=== PATIENT | male | born 1935 | race Caucasian/White ===

== ENCOUNTER 2019-01-14 23:31 | Emergency (ER) | payer MEDICARE, BC ==
[2019-01-14 23:47] LABS: BASO % 0.4 % (0.0-2.0); EOS % 0.1 % (0-4.0); GRAN # 8.1 (1.4-6.5); GRAN % 87.9 % (42.2-75.2); HEMATOCRIT 42.6 % (42.0-52.0); HEMOGLOBIN 14.9 g/dl (13.5-18.0); LYMPH # 0.7 (1.2-3.4); LYMPH % 7.4 % (20.0-51.0); MEAN CELL VOLUME 93 fl (80.0-100.0); MEAN CORPUSCULAR HEMOGLOBIN 33 pg (27.0-31.0); MEAN CORPUSCULAR HGB CONC 35 g/dl (33.0-37.0); MEAN PLATELET VOLUME 9.1 fl (7.4-10.4); MONO # 0.3 (0.1-0.6); MONO % 3.5 % (1.7-9.3); PLATELET COUNT 184 K/mm3 (130-400); RED BLOOD COUNT 4.59 M/mm3 (4.20-5.60); REDCELL DISTRIBUTION WIDTH-CV 12.2 % (11.5-14.5)
[2019-01-14 23:49] LABS: INR 1.1 (0.8-3.0); PROTHROMBIN TIME 12.4 SECONDS (9.7-12.8)
[2019-01-14 23:52] LABS: PARTIAL THROMBOPLASTIN TIME 25.1 SECONDS (26.0-37.0)
[2019-01-15 00:20] LABS: ARTERIAL BLD GAS O2 SATURATION 97.1 % (92-100); ARTERIAL BLOOD GAS HCO3 20.1 meq/L (22-26); ARTERIAL BLOOD GAS PCO2 30.5 mmHg (35-45); ARTERIAL BLOOD GAS PO2 102.8 mmHg (80-100); ARTERIAL BLOOD GAS pH 7.44 (7.35-7.45)
[2019-01-15 00:40] VITALS: TEMP 101
[2019-01-15 00:45] LABS: AMORPHOUS CRYSTAL Present /uL; MUCOUS Present /lpf; PH 5 (5-8); SQUAMOUS EPITHELIAL None Seen /hpf; URINE APPEARANCE Cloudy; URINE BACTERIA Moderate /hpf; URINE BILIRUBIN Negative (NEGATIVE); URINE BLOOD 3+ (NEGATIVE); URINE COLOR Amber; URINE GLUCOSE Negative (NEGATIVE); URINE KETONE Negative (NEGATIVE); URINE LEUKOCYTE ESTERASE 3+ (NEGATIVE); URINE NITRATE Negative (NEGATIVE); URINE PROTEIN(semi-quant) 2+ (NEGATIVE); URINE RBC >50 /hpf; URINE UROBILINOGEN Negative (NEGATIVE)
[2019-01-15 00:47] LABS: ALBUMIN 4.1 gm/dL (3.5-5.0); BILIRUBIN,TOTAL 0.7 mg/dL (0.0-1.0); CALCIUM 9.5 mg/dL (8.4-10.2); CREATININE, serum 1.42 (0.66-1.25); MAGNESIUM 1.1 mg/dL (1.6-2.3); PHOSPHOROUS 2.6 mg/dL (2.5-4.5); TOTAL PROTEIN 7.3 gm/dL (6.4-8.2)
[2019-01-15 00:49] LABS: COLLECTION METHOD CATHETER
[2019-01-15] MEDS ORDERED: ZYLOPRIM 100MG100 MG PO (00:50)
[2019-01-15] MEDS ORDERED: TENORMIN 2525 MG/TAB PO (00:50)
[2019-01-15] MEDS ORDERED: ASPI325T6 PO (00:50)
[2019-01-15] MEDS ORDERED: HYGROTON 2525 MG/TAB (00:51)
[2019-01-15] MEDS ORDERED: COZAAR 50MG50 MG/TAB PO (00:51)
[2019-01-15] MEDS ORDERED: LIPITOR20 MG PO (00:51)
[2019-01-15] MEDS ORDERED: SEROQUEL XR300 MG PO (00:53)
[2019-01-15] MEDS ORDERED: QUESTRAN4 GM/9 GM PO (00:54)
[2019-01-15] MEDS ORDERED: LAMICTAL200 MG PO (00:54)
[2019-01-15] MEDS ORDERED: NEXIUM 40MG40 MG PO (00:54)
[2019-01-15 01:02] LABS: PROLACTIN 14.9 ng/mL (3.7-17.9)
[2019-01-15 01:08] LABS: TROPONIN-I 0.057 ng/mL (0.000-0.035)
[2019-01-15] MEDS ORDERED: NORCO 325 MG-51 TAB PO (01:25)
[2019-01-15] MEDS ORDERED: BACTRIM DS 8001 TAB PO (01:27)
[2019-01-15 02:29] VITALS: BP 107/59; PULSE 101
== END 2019-01-15 02:29 | disposition short-term general hospital (02) ==
LOC: COL.ER 23:31 → EDBD 23:32 → COL.ER 23:32
PROVIDERS: Emergency Medicine
DX: A41.9 Sepsis, unspecified organism (principal); N39.0 Urinary tract infection, site not specified; R65.20 Severe sepsis without septic shock; R79.89 Other specified abnormal findings of blood chemistry; I25.10 Atherosclerotic heart disease of native coronary artery without angina pectoris; Z95.0 Presence of cardiac pacemaker; Z90.49 Acquired absence of other specified parts of digestive tract; Z85.46 Personal history of malignant neoplasm of prostate; Z79.82 Long term (current) use of aspirin
CPT/HCPCS: J0696; J2405; J3475; J3480; J7030; Q9967

== ENCOUNTER 2019-02-27 12:20 | Observation (INO) | payer MEDICARE, BC ==
[2019-02-27] VITALS (11 sets, daily range): BP systolic 150–184; BP diastolic 67–83; PULSE 68–95; TEMP 98–98.2
[~2019-02-27] VITALS: Ht 177.8 cm; Wt 72.5 kg
[~2019-02-27 12:20] MED LIST: ANTIVERT 25MG25 MG PO; ASPI325T6 PO; ASPIRIN 32325 MG/TAB PO; ATORVASTATIN PO; ATOXIMETIN-B1 CAP PO; BACTRIM DS 8001 TAB PO; CARDI-OMEGA1000 MG PO; CIPRO 500MG TA500 MG PO; CLONIDINE0.1 MG PO; CLOPIDOGREL PO; COZAAR 25MG25 MG/TAB PO; COZAAR 50MG50 MG/TAB PO; DESYREL 50MG50 MG PO; DIOVAN80 MG PO; FLAGYL500 MG PO; FLOMAX 0.40.4 MG/CAP PO; FLOMAX0.4 MG PO; HYGROTON 2525 MG/TAB; HYGROTON 2525 MG/TAB PO; IMDUR60 MG PO; LAMICTAL 100MG100 MG PO; LAMICTAL XR200 MG PO; LAMICTAL200 MG PO; LEVAQUIN 750MG750 M1 PO; LIPITOR20 MG PO; MOBIC 7.5MG7.5 MG PO; MOBIC7.5 M1 PO; MULTI VITAMINS1 TAB PO; NATURE'S BLEND400 IU PO; NEXIUM 40MG40 MG PO; NEXIUM40 MG PO; NORCO 325 MG-51 TAB PO; PAXIL30 MG PO; PROVIGIL200 MG PO; QUESTRAN4 GM/9 GM PO; SENOKOT S 50 MG1 TAB PO; SEROQUEL 200MG200 MG PO; SEROQUEL XR300 MG PO; TENORMIN 2525 MG/TAB PO; TENORMIN 5050 MG/TAB PO; TOPROL XL 50MG50 MG PO; ULTRAM 50MG TAB50 MG; VITAMIN E1000 U/CAP PO; ZETIA 10MG TAB10 MG PO; ZOFRAN ODT4 MG PO; ZYLOPRIM 100MG100 MG PO
[2019-02-27] MEDS ORDERED: ASPIRIN 81M81 MG/TA2 PO (12:52)
[2019-02-27] MEDS ORDERED: OMNICEF 300MG300 MG PO (12:58)
[2019-02-27] MEDS ORDERED: PROVIGIL200 MG PO (12:58)
[2019-02-27] MEDS ORDERED: CALCIUM 600MG+D1 TAB PO (12:58)
--- NOTE | 2019-02-27 14:00 | NUR ---
Patient resting comfortably in room. Denies any needs at this time.
--- NOTE | 2019-02-27 14:40 | NUR ---
Patient to the OR at this time. 1 bag of personal belongings labeled with a patient sticker taken to the PACU and left with ANATOLIY Pollock.
--- NOTE | 2019-02-27 17:05 | NUR ---
PT TO ROOM 343 WITH REPORT FROM HELENA @ 7076. PT IS A/O X3, CBI RUNNING WITH PINK LIQUID IN FOLELY BAG. IV TO LFA. LUNGS CLEAR, BOWEL SOUNDS ACTIVE. SCDS PLACED BILATERALLY.
--- NOTE | 2019-02-27 19:15 | NUR ---
report to Deisy COPE.
--- NOTE | 2019-02-28 00:13 | NUR ---
Dr. López updated on hypertension and fever of 100.4. Orders as follows: Hydralazine 10mg IV every 8 hours PRN for systolic BP over 160, Discontinue Ancef and start IV Levaquin 500mg every 24 hours with the first dose now. TORB.
[2019-02-28 04:13] VITALS: BP 110/53; PULSE 85; TEMP 99.6
[2019-02-28 07:40] VITALS: BP 129/61; PULSE 88; TEMP 99
--- NOTE | 2019-02-28 11:02 | NUR ---
SW met with the patient to discuss discharge plan. The patient lives in [place] with his , Marcie. He reports independence with ADLs and has a cane. The patient's PCP is Dr. Makayla Bradshaw and he receives his medications at the [facility]. He reports no difficulties obtaining his meds. The patient does not have advanced directives in EMR, but he states that he does have them completed and at home. He states his is his DPOA-HC. The patient plans to return home with his upon discharge. No additional needs at this time.
--- NOTE | 2019-02-28 11:10 | NUR ---
Initial visit; Patient thanked Fretted String Instrument Repairer for looking in on him and wishing him well.
[2019-02-28 11:21] VITALS: BP 139/60; PULSE 89; TEMP 99.5
[2019-02-28 16:22] VITALS: BP 134/77; PULSE 86; TEMP 97.6
[2019-02-28 16:43] VITALS: BP 125/47; PULSE 76; TEMP 97.3
--- NOTE | 2019-02-28 18:00 | NUR ---
Patient has been doing well today. He sat up in the chair for a few hours. Urine continues to be light pink. CBI is flowing very slowly. Patient continues to drink plenty of fluids. No other changes at this time. Patient is hoping to go home tomorrow. Call light within reach.
[2019-02-28 20:27] VITALS: BP 125/54; PULSE 80; TEMP 98.7
--- NOTE | 2019-02-28 23:48 | NUR ---
Patient resting in bed. CBI running at a slow pace, urine clear yellow. Denies any pain. Orders to prime and pull in the AM. Patient denies any needs. Will continue to monitor.
[2019-03-01 00:16] VITALS: BP 138/53; PULSE 76; TEMP 98.6
[2019-03-01 05:00] VITALS: BP 129/55; PULSE 70; TEMP 98.4
[2019-03-01 07:45] VITALS: BP 144/75; PULSE 71; TEMP 98.8
[2019-03-01 13:00] VITALS: BP 126/53; PULSE 78; TEMP 98.6
[2019-03-01 17:30] VITALS: BP 121/77; PULSE 77; TEMP 978.5
--- NOTE | 2019-03-01 18:30 | NUR ---
Catheter primed and pulled in AM. Voiding small amounts red tinged urine. No clots noted. Bladder scan done with [address] Schaefer notified.
--- NOTE | 2019-03-01 19:59 | NUR ---
#[address] ROWE CATHETER INSERTED USING LIDOCAINE GEL PER UROLOGIST ORDER. GOT BACK 500 mL MAIRA URINE. NO CBI ORDERED.
[2019-03-01 20:12] VITALS: BP 125/53; PULSE 73; TEMP 98.5
[2019-03-02 00:14] VITALS: BP 115/57; PULSE 69; TEMP 97.9
[2019-03-02 03:42] VITALS: BP 120/66; PULSE 66; TEMP 98.2
--- NOTE | 2019-03-02 05:11 | NUR ---
3 WAY ROWE CATH PATENT. NO c/o PAIN. URINE MAIRA IN COLOR.
--- NOTE | 2019-03-02 05:57 | NUR ---
EMPTIED ROWE BAG, AFTER RE-ASSESSING WITH MORE LIGHT, URINE DOES HAVE A LIGHT PINK TINGE.
[2019-03-02 07:58] VITALS: BP 147/66; PULSE 70; TEMP 98.6
[2019-03-02 12:14] VITALS: BP 118/54; PULSE 73; TEMP 98.2
[2019-03-02 15:44] VITALS: BP 114/53; PULSE 73; TEMP 98.1
--- NOTE | 2019-03-02 17:30 | NUR ---
Voiding pink tinged urine without clots after catheter dc'd. Small residual per bladder scanner. No complaints. Dismissed to home with spouse.
== END 2019-03-02 17:30 | disposition home or self-care (01) ==
LOC: SDCO 12:20 → SURG 14:44
PROVIDERS: ADMIT Urology
DX: C61 Malignant neoplasm of prostate (principal); N40.1 Benign prostatic hyperplasia with lower urinary tract symptoms; R33.9 Retention of urine, unspecified; N21.0 Calculus in bladder; M19.90 Unspecified osteoarthritis, unspecified site; I25.10 Atherosclerotic heart disease of native coronary artery without angina pectoris; K21.9 Gastro-esophageal reflux disease without esophagitis; I10 Essential (primary) hypertension; K58.9 Irritable bowel syndrome, unspecified; I25.2 Old myocardial infarction; C79.51 Secondary malignant neoplasm of bone; R55 Syncope and collapse; G47.33 Obstructive sleep apnea (adult) (pediatric); Z95.1 Presence of aortocoronary bypass graft; Z90.49 Acquired absence of other specified parts of digestive tract; Z79.82 Long term (current) use of aspirin; Z82.5 Family history of asthma and other chronic lower respiratory diseases; Z80.0 Family history of malignant neoplasm of digestive organs; Z83.3 Family history of diabetes mellitus; Z82.49 Family history of ischemic heart disease and other diseases of the circulatory system; Z82.3 Family history of stroke; Z80.42 Family history of malignant neoplasm of prostate
CPT/HCPCS: G0378; G0379; J0360; J0690; J1956; J2250; J2704; J2765; J3010; J7120

== ENCOUNTER → 2019-03-05 | Outpatient (CLI) | payer MEDICARE, BC ==
[~2019-03-05] MED LIST changes: +ASPIRIN 81M81 MG/TA2 PO; +CALCIUM 600MG+D1 TAB PO; +OMNICEF 300MG300 MG PO
== END ==
LOC: BHSO 10:14
DX: F31.81 Bipolar II disorder (principal)
CPT/HCPCS: G0463

== ENCOUNTER → 2019-05-28 | Outpatient (CLI) | payer MEDICARE, BC | LOC: BHSO 10:31 | DX: F31.81 Bipolar II disorder (principal) ==

== ENCOUNTER 2019-07-02 15:03 | Inpatient (IN) | payer MEDICARE, BC ==
[~2019-07-02] VITALS: Ht 177.8 cm; Wt 80.1 kg
[2019-07-02 15:52] LABS: HEMATOCRIT 38.9 % (42.0-52.0); HEMOGLOBIN 13.4 g/dl (13.5-18.0); MEAN CELL VOLUME 95 fl (80.0-100.0); MEAN CORPUSCULAR HEMOGLOBIN 33 pg (27.0-31.0); MEAN CORPUSCULAR HGB CONC 34 g/dl (33.0-37.0); MEAN PLATELET VOLUME 9.5 fl (7.4-10.4); PLATELET COUNT 108 K/mm3 (130-400); REDCELL DISTRIBUTION WIDTH-CV 12.7 % (11.5-14.5)
[2019-07-02 15:58] LABS: INR 1.1 (0.8-3.0); PROTHROMBIN TIME 13.3 SECONDS (9.7-12.8)
[2019-07-02 16:05] LABS: ALBUMIN 3.6 gm/dL (3.5-5.0); BILIRUBIN,TOTAL 0.7 mg/dL (0.0-1.0); CALCIUM 8.8 mg/dL (8.4-10.2); CREATININE, serum 1.83 (0.66-1.25); POTASSIUM 3.5 mmol/L (3.4-5.0); TOTAL PROTEIN 6.3 gm/dL (6.4-8.2)
[2019-07-02 16:16] LABS: TROPONIN-I 0.08 ng/mL (0.000-0.035)
[2019-07-02 16:16] LABS: BAND 53 % (0-10); LYMPHOCYTE 3 % (20.0-51.0); NEUTROPHILS 41 % (42.0-75.2); PLATELET ESTIMATE DECREASED (NORMAL)
[2019-07-02 16:16] LABS: ARTERIAL BLD GAS O2 SATURATION 96.8 % (92-100); ARTERIAL BLD GAS TCO2 CT 20.8; ARTERIAL BLOOD GAS BASE EXCESS -4.5 (-2-2); ARTERIAL BLOOD GAS HCO3 19.8 meq/L (22-26); ARTERIAL BLOOD GAS PCO2 34.2 mmHg (35-45); ARTERIAL BLOOD GAS PO2 99.7 mmHg (80-100); ARTERIAL BLOOD GAS pH 7.38 (7.35-7.45)
[2019-07-02 16:17] LABS: C-REACTIVE PROTEIN 22.6 mg/dL (0.0-0.9)
[2019-07-02 16:49] LABS: COLLECTION METHOD CLEAN CATCH
[2019-07-02 17:00] LABS: MUCOUS Present /lpf; PH 5 (5-8); SQUAMOUS EPITHELIAL 0-2 /hpf; URINE APPEARANCE Cloudy; URINE BACTERIA Rare /hpf; URINE BILIRUBIN Negative (NEGATIVE); URINE BLOOD 3+ (NEGATIVE); URINE COLOR Amber; URINE GLUCOSE Negative (NEGATIVE); URINE KETONE Negative (NEGATIVE); URINE LEUKOCYTE ESTERASE 2+ (NEGATIVE); URINE NITRATE Negative (NEGATIVE); URINE PROTEIN(semi-quant) 1+ (NEGATIVE); URINE RBC 20-50 /hpf; URINE UROBILINOGEN Negative (NEGATIVE)
--- NOTE | 2019-07-02 20:15 | NUR ---
Patient arrived to room via ED cart and tech. at bedside. Patient c/o back pain. Will give prn pain medication. Patient ambulated to BR with mod assist x1. Had BM. Denies further needs at this time. Will continue to monitor.
[2019-07-02 20:17] VITALS: BP 102/72; PULSE 98; TEMP 99.3
[2019-07-02] MEDS ORDERED: WELLBUTRIN XL150 MG PO (22:19)
[2019-07-02] MEDS ORDERED: ASPIRIN 81M81 MG/TA2 PO (22:19)
[2019-07-02] MEDS ORDERED: NORCO 325 MG-101 TAB PO (22:20)
--- NOTE | 2019-07-03 02:00 | NUR ---
Patient c/o extreme pain in lower back, more than his chronic back pain. Prn pain medications not effective. Dr. Molina notified. Dr. Molina to review his chart and get back to RN. Given that patient had fallen at home, there is a concern he injured himself. Patient agreeable to plan. Repositioned in bed. Ice pack applied to lower back. Will continue to monitor.
[2019-07-03 03:22] VITALS: BP 100/50; PULSE 104; TEMP 98.9
--- NOTE | 2019-07-03 04:10 | NUR ---
Dr. Molina notified of patient's increased back pain. IV pain medication ordered x1 dose. Will administer and continue to monitor. 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 Patient on abx regimen.
--- NOTE | 2019-07-03 05:00 | NUR ---
Patient repositioned in bed. Ice pack applied to lower back. Patient states the IV pain medication has not been effective. Pillowbridged back and knees. Will recheck his pain in 15 minutes. Patient agreeable to plan.
--- NOTE | 2019-07-03 05:30 | NUR ---
Patient in bed, sleeping. Appears comfortable. Will continue to monitor.
[2019-07-03 06:05] LABS: ARTERIAL BLD GAS O2 SATURATION 96.8 % (92-100); ARTERIAL BLD GAS TCO2 CT 20.6; ARTERIAL BLOOD GAS BASE EXCESS -3.8 (-2-2); ARTERIAL BLOOD GAS HCO3 19.6 meq/L (22-26); ARTERIAL BLOOD GAS PCO2 31.2 mmHg (35-45); ARTERIAL BLOOD GAS PO2 88.5 mmHg (80-100); ARTERIAL BLOOD GAS pH 7.42 (7.35-7.45)
--- NOTE | 2019-07-03 06:19 | NUR ---
Patient awake, stating his pain is still unbearable. Prn norco to be given. Will reassess pain. Denies further needs at this time. Will continue to monitor.
[2019-07-03 07:21] LABS: HEMOGLOBIN 11.5 g/dl (13.5-18.0); MEAN CELL VOLUME 98 fl (80.0-100.0); MEAN CORPUSCULAR HEMOGLOBIN 33 pg (27.0-31.0); MEAN CORPUSCULAR HGB CONC 34 g/dl (33.0-37.0); PLATELET COUNT 84 K/mm3 (130-400); RED BLOOD COUNT 3.51 M/mm3 (4.20-5.60); REDCELL DISTRIBUTION WIDTH-CV 13.2 % (11.5-14.5)
[2019-07-03 07:27] LABS: HEMATOCRIT 34.3 % (42.0-52.0)
[2019-07-03 07:28] LABS: INR 1.2 (0.8-3.0); PROTHROMBIN TIME 13.6 SECONDS (9.7-12.8)
[2019-07-03 07:29] LABS: BILIRUBIN,TOTAL 0.7 mg/dL (0.0-1.0); CALCIUM 7.8 mg/dL (8.4-10.2); CREATININE, serum 1.64 (0.66-1.25); POTASSIUM 3.5 mmol/L (3.4-5.0); TOTAL PROTEIN 5.5 gm/dL (6.4-8.2)
--- NOTE | 2019-07-03 07:53 | NUR ---
Vancomycin Initial Dosing Pharmacy Note Ordering provider: Dre William MD Indication/duration: PNA Relevant comorbidities: sepsis, UTI LABS: SCr 1.83/1.64, eCrCl on 07/03/19 is ~35mL/min Recommendation: Loading dose: 1.5 grams given 07/02/19 @ 21:26 Maintenance dose: 1 gram Q24h starting 07/03/19 @ 13:00 Trough goal: 15-20 ug/mL. First trough will be drawn prior to the 4th dose on 07/05/19 @ 12:30. Will continue to follow.
[2019-07-03 07:54] LABS: TROPONIN-I 0.045 ng/mL (0.000-0.035)
[2019-07-03 09:19] VITALS: BP 152/80; PULSE 112; TEMP 98.3
[2019-07-03 09:49] LABS: BAND 52 % (0-10); LYMPHOCYTE 10 % (20.0-51.0); NEUTROPHILS 35 % (42.0-75.2); PLATELET ESTIMATE DECREASED (NORMAL)
--- NOTE | 2019-07-03 09:51 | NUR ---
Shiatsu Therapist attended clinical rounds with the team. SW to follow up with patient on discharge planning.
[2019-07-03 12:45] VITALS: BP 116/72; PULSE 111; TEMP 98.1
--- NOTE | 2019-07-03 13:42 | NUR ---
Patient in room with and granddaughter. Just recieved meal tray. Patient has call light in reach and bed at lowest position. Licensed Bondsman reported off to primary gave patient ice chips and an oral spounge for complaints of dry mouth and has no addional complaints or needs at this time. Licensed Bondsman is now departing the floor.
--- NOTE | 2019-07-03 13:48 | NUR ---
Primary nurse was assisted with [id number] patient care by [employer] student Joan Beatty and [employer] instructor Belén Abreu RN-.
--- NOTE | 2019-07-03 16:17 | NUR ---
[employer] student met with the patient and the patient's granddaughter, Rosa to discuss a discharge plan. The patient was hard to rouse, granddaughter answered questions. The patient lives in [place] with his and daughter. The patient is independent with ADLs. The patient's PCP is Dr. Bradshaw and patient receives medications from [facility]. The patient does not have advanced directives in the EMR. emergency medical services coordinator will continue to monitor to ensure a safe discharge.
[2019-07-03 17:31] VITALS: BP 109/49; PULSE 100; TEMP 98.6
[2019-07-03 19:37] VITALS: BP 122/53; PULSE 97; TEMP 98.6
--- NOTE | 2019-07-03 20:02 | NUR ---
Pt resting in the room, has had C/O pain in his lower back during the day, pain worse with movement, medications were given to try an provide relief, VS have remained stable.
--- NOTE | 2019-07-03 20:30 | NUR ---
Initial shift assessment done-family in room visiting-- pt states back pain 05/22- will give Morphine IV as ordered o2 at 1L/nc, denies SOB. Tele on. IV fluids of NS at 150cc/hr, Diaz with cloudy yellow urine. Family would like to make sure pt is offered pain meds
[2019-07-03 23:22] VITALS: BP 121/59; PULSE 99
[2019-07-04] VITALS (7 sets, daily range): BP systolic 111–170; BP diastolic 52–80; PULSE 90–120; TEMP 97.6–98.9
--- NOTE | 2019-07-04 06:20 | NUR ---
Has been sleeping most of the night- VSS, Did get Morphine IV and NOrco at 0330 for severe back pain 05/22- has been sleeping well since then
[2019-07-04 07:35] LABS: BASO % 0.4 % (0.0-2.0); EOS # 0.2 (0.0-0.7); EOS % 2.1 % (0-4.0); GRAN # 5.9 (1.4-6.5); GRAN % 72.3 % (42.2-75.2); HEMOGLOBIN 10.6 g/dl (13.5-18.0); LYMPH # 1.1 (1.2-3.4); LYMPH % 13.7 % (20.0-51.0); MEAN CELL VOLUME 97 fl (80.0-100.0); MEAN CORPUSCULAR HEMOGLOBIN 32 pg (27.0-31.0); MEAN CORPUSCULAR HGB CONC 33 g/dl (33.0-37.0); MEAN PLATELET VOLUME 10.1 fl (7.4-10.4); MONO # 0.9 (0.1-0.6); MONO % 10.5 % (1.7-9.3); PLATELET COUNT 97 K/mm3 (130-400); RED BLOOD COUNT 3.27 M/mm3 (4.20-5.60); REDCELL DISTRIBUTION WIDTH-CV 13.4 % (11.5-14.5)
[2019-07-04 07:36] LABS: HEMATOCRIT 31.7 % (42.0-52.0); PROTHROMBIN TIME 12.2 SECONDS (9.7-12.8)
[2019-07-04 07:39] LABS: ALBUMIN 2.7 gm/dL (3.5-5.0); BILIRUBIN,TOTAL 0.5 mg/dL (0.0-1.0); CALCIUM 7.9 mg/dL (8.4-10.2); CREATININE, serum 1.19 (0.66-1.25); POTASSIUM 3.4 mmol/L (3.4-5.0); TOTAL PROTEIN 5.2 gm/dL (6.4-8.2)
--- NOTE | 2019-07-04 10:06 | NUR ---
Professor Of Archaeology attended clinical rounds with the team where needed imaging was discussed with patient and family. SW to continue to follow.
--- NOTE | 2019-07-04 11:52 | NUR ---
Removed INT from left AC, tip intact,
--- NOTE | 2019-07-04 14:00 | NUR ---
Primary nurse was assisted with patient care, [id number] by Joan Beatty, [id number] by Piero Reina both [employer] students; as well as [facility] [employer] instructor Belén Abreu RN-.
--- NOTE | 2019-07-04 19:34 | NUR ---
Pt rested in the room today, has C/O pain in his lower back area not well releived with current medications, lidicaine patch applied without much relief, VS ahve remain stable.
[2019-07-05 03:33] VITALS: BP 113/47; PULSE 87
[2019-07-05 07:23] VITALS: BP 158/79; PULSE 99; TEMP 97.7
[2019-07-05 08:34] LABS: BASO % 0.2 % (0.0-2.0); EOS # 0.2 (0.0-0.7); EOS % 2.2 % (0-4.0); GRAN # 4.8 (1.4-6.5); GRAN % 58.7 % (42.2-75.2); HEMOGLOBIN 10.8 g/dl (13.5-18.0); LYMPH # 2.1 (1.2-3.4); MEAN CELL VOLUME 95 fl (80.0-100.0); MEAN CORPUSCULAR HEMOGLOBIN 32 pg (27.0-31.0); MEAN CORPUSCULAR HGB CONC 34 g/dl (33.0-37.0); MEAN PLATELET VOLUME 9.6 fl (7.4-10.4); MONO # 1.1 (0.1-0.6); MONO % 13.5 % (1.7-9.3); PLATELET COUNT 106 K/mm3 (130-400); RED BLOOD COUNT 3.36 M/mm3 (4.20-5.60); REDCELL DISTRIBUTION WIDTH-CV 12.9 % (11.5-14.5)
[2019-07-05 08:50] LABS: PROTHROMBIN TIME 12.2 SECONDS (9.7-12.8)
[2019-07-05 08:51] LABS: BILIRUBIN,TOTAL 0.5 mg/dL (0.0-1.0); CALCIUM 8.8 mg/dL (8.4-10.2); POTASSIUM 3.3 mmol/L (3.4-5.0); TOTAL PROTEIN 5.6 gm/dL (6.4-8.2)
--- NOTE | 2019-07-05 11:00 | NUR ---
Pt placed himself on personal C-PAP.
[2019-07-05 11:36] VITALS: BP 157/68; PULSE 103; TEMP 97.6
[2019-07-05 12:53] VITALS: BP 118/66; PULSE 104; TEMP 98.2
--- NOTE | 2019-07-05 13:53 | NUR ---
Pt awake upon entry, Has C/O pain, medications administered, shift assessments complete, left Pt call light in reach, bed in lowest position.
[2019-07-05 16:37] VITALS: BP 165/80; PULSE 99; TEMP 98.3
--- NOTE | 2019-07-05 18:32 | NUR ---
Pt resting in the room, has C/o pain in his back and additional C/O pain in the left side of the neck, VS have remained stable.
--- NOTE | 2019-07-05 19:20 | NUR ---
Report rcvd from ANATOLIY Simon. Pt laying in bed. Assessment completed. Pt has mild complaint of pain in his neck and back. Pt is in need of using the restroom and would like to use it before he takes his evening medications so that he can stay in bed. Complied with pt requests. Evening medications administered, pt used restroom and got back into bed. Call light and phone within pt reach. No further concerns at this time.
[2019-07-05 20:06] VITALS: BP 159/82; PULSE 103; TEMP 99.6
[2019-07-06 00:06] VITALS: BP 155/81; PULSE 87; TEMP 99
--- NOTE | 2019-07-06 00:49 | NUR ---
Pt sleeping in room. Administered IV antibiotics. Pt back to sleep, Call light within reach, bed in low and locked position. C-Pap still on. No further concerns at this time.
[2019-07-06 03:28] VITALS: BP 173/83; PULSE 87; TEMP 98.5
--- NOTE | 2019-07-06 07:39 | NUR ---
Report given to ANATOLIY Simon. Pt had an uneventful night. Slept very well with Cpap on. No further concerns at this time.
[2019-07-06 07:48] VITALS: BP 170/71; PULSE 96; TEMP 98.9
[2019-07-06 08:09] LABS: BASO % 0.5 % (0.0-2.0); EOS # 0.3 (0.0-0.7); EOS % 3.6 % (0-4.0); GRAN # 5.1 (1.4-6.5); HEMOGLOBIN 11.1 g/dl (13.5-18.0); LYMPH # 1.7 (1.2-3.4); LYMPH % 19.7 % (20.0-51.0); MEAN CELL VOLUME 94 fl (80.0-100.0); MEAN CORPUSCULAR HEMOGLOBIN 33 pg (27.0-31.0); MEAN CORPUSCULAR HGB CONC 35 g/dl (33.0-37.0); MEAN PLATELET VOLUME 9.8 fl (7.4-10.4); MONO # 1.3 (0.1-0.6); MONO % 15.3 % (1.7-9.3); PLATELET COUNT 120 K/mm3 (130-400); RED BLOOD COUNT 3.39 M/mm3 (4.20-5.60); REDCELL DISTRIBUTION WIDTH-CV 12.8 % (11.5-14.5)
[2019-07-06 08:10] LABS: HEMATOCRIT 31.8 % (42.0-52.0)
[2019-07-06 08:12] LABS: CALCIUM 8.8 mg/dL (8.4-10.2); CREATININE, serum 0.96 (0.66-1.25); POTASSIUM 3.2 mmol/L (3.4-5.0)
[2019-07-06 08:24] LABS: C-REACTIVE PROTEIN 14.2 mg/dL (0.0-0.9)
[2019-07-06 12:27] VITALS: BP 171/78; PULSE 96; TEMP 99.9
--- NOTE | 2019-07-06 14:25 | NUR ---
RT GOWNING TO ENTER ROOM AND HEARD KNOCKING SOUND AND THEN A CALL FOR HELP. RT ENTERED ROOM TO FIND PT ON THE FLOOR BY THE BATHROOM DOOR. RT IMMEDIATELY CALLED FOR HELP AND PT WAS ASSISTED BACK TO BED. PT HAD SKIN TEAR ON LEFT ELBOW BUT DID NOT APPEAR TO BE OTHERWISE INJURED.
--- NOTE | 2019-07-06 15:15 | NUR ---
Pt awake and alert upon entry, family in room, C/O pain in left side of neck and lower back, shift assessments complete, left Pt call light in reach, bed in lowest position.
[2019-07-06 16:07] VITALS: BP 170/69; PULSE 97; TEMP 97.7
--- NOTE | 2019-07-06 18:43 | NUR ---
Pt rested in room today, Pt had fall in room, no increased pain, has small skin tear on left elbow, Pt stated that after afternoon dose of baclofen his pain is much reduced, he was given a norco at the same time. Vs have remained stable.
--- NOTE | 2019-07-06 20:30 | NUR ---
PT IN BED, COMPLAINT OF MILD PAIN AND DISCOMFORT IN HIS BACK. ROWE REMOVED TODAY AND HAVING DIFFICULTY WITH URINAL BECAUSE OF THE INABILTY TO SIT UP STRAIGHT. EDUCATED PT TO USE THE BED TO RAISE UP. NO FURTHER CONCERNS AT THIS TIME. CALL LIGHT WITHIN REACH. BED ALARM ON.
[2019-07-06 20:43] VITALS: BP 167/71; PULSE 100; TEMP 99
[2019-07-07] VITALS (7 sets, daily range): BP systolic 133–179; BP diastolic 7–84; PULSE 77–95; TEMP 97.2–99.2
[2019-07-07 06:58] LABS: HEMOGLOBIN 11.1 g/dl (13.5-18.0); MEAN CELL VOLUME 96 fl (80.0-100.0); MEAN CORPUSCULAR HEMOGLOBIN 33 pg (27.0-31.0); MEAN CORPUSCULAR HGB CONC 34 g/dl (33.0-37.0); MEAN PLATELET VOLUME 9.4 fl (7.4-10.4); PLATELET COUNT 145 K/mm3 (130-400); RED BLOOD COUNT 3.42 M/mm3 (4.20-5.60); REDCELL DISTRIBUTION WIDTH-CV 12.6 % (11.5-14.5)
[2019-07-07 07:02] LABS: HEMATOCRIT 32.7 % (42.0-52.0)
[2019-07-07 07:17] LABS: ALBUMIN 3.1 gm/dL (3.5-5.0); BILIRUBIN,TOTAL 0.7 mg/dL (0.0-1.0); CALCIUM 8.8 mg/dL (8.4-10.2); CREATININE, serum 0.89 (0.66-1.25); TOTAL PROTEIN 5.9 gm/dL (6.4-8.2)
[2019-07-07 07:27] LABS: POTASSIUM 2.9 mmol/L (3.4-5.0)
[2019-07-07 08:41] LABS: BAND 8 % (0-10); EOSINOPHIL 8 % (0-4); LYMPHOCYTE 23 % (20.0-51.0); METAMYELOCYTE 1 % (0-0); MYELOCYTE 2 % (0-0); NEUTROPHILS 47 % (42.0-75.2); PLATELET ESTIMATE NORMAL (NORMAL)
--- NOTE | 2019-07-07 11:32 | NUR ---
SW met with the patient, patient's granddaughter (Rosa), and daughter (Elise) to review discharge plan and to discuss PT's recommendation of post-acute rehab. The patient was sleeping. The patient's granddaugher reports that they would be open to post-acute rehab for the patient and would prefer [facility]. The patient's granddaughter reports that she will speak to the patient's about this and the patient when he wakes up. SW to continue to follow.
--- NOTE | 2019-07-07 11:59 | NUR ---
Pt resting in bed, family in room with Pt, C/O pain in left side of neck and lower back, shift assessments complete, left Pt call light in reach, bed in lowest position.
--- NOTE | 2019-07-07 14:03 | NUR ---
First visit from the certified lactation educator. No needs right now.
--- NOTE | 2019-07-07 16:36 | NUR ---
SW followed up with the patient and his to review PT's recommendation of post-acute rehab. The patient's reports that they would be agreeable to post-acute rehab. SW presented and explained the Patient Choice Form and provided them with Medicare.gov's list of nursing homes in the [facility]. The patient's chose 1) [facility] 2) [facility]. Patient Choice Form signed by the patient's and she was provided a copy. SW contacted and faxed a referral to both facilities. SW awaiting their screens.
--- NOTE | 2019-07-07 19:33 | NUR ---
Pt rested today, was sleeping on and off all day, has C/O pain in left side of his neck and lower back today, VS have remained stable.
[2019-07-08 04:16] VITALS: BP 170/77; PULSE 83; TEMP 98.1
[2019-07-08 05:44] LABS: HEMOGLOBIN 10.9 g/dl (13.5-18.0); MEAN CELL VOLUME 95 fl (80.0-100.0); MEAN CORPUSCULAR HEMOGLOBIN 32 pg (27.0-31.0); MEAN CORPUSCULAR HGB CONC 34 g/dl (33.0-37.0); MEAN PLATELET VOLUME 9.7 fl (7.4-10.4); PLATELET COUNT 184 K/mm3 (130-400); RED BLOOD COUNT 3.36 M/mm3 (4.20-5.60); REDCELL DISTRIBUTION WIDTH-CV 12.4 % (11.5-14.5)
[2019-07-08 05:50] LABS: HEMATOCRIT 31.8 % (42.0-52.0)
[2019-07-08 06:01] LABS: CALCIUM 8.8 mg/dL (8.4-10.2); CREATININE, serum 0.93 (0.66-1.25); MAGNESIUM 1.7 mg/dL (1.6-2.3); POTASSIUM 3.5 mmol/L (3.4-5.0)
[2019-07-08 07:18] VITALS: BP 157/75; PULSE 84; TEMP 97.5
[2019-07-08 07:41] LABS: BAND 4 % (0-10); EOSINOPHIL 4 % (0-4); LYMPHOCYTE 28 % (20.0-51.0); NEUTROPHILS 52 % (42.0-75.2)
[2019-07-08 07:42] LABS: PLATELET ESTIMATE NORMAL (NORMAL)
--- NOTE | 2019-07-08 10:58 | NUR ---
SW collaborated with Joanna, Nurse Practitioner. The patient's family is open to palliative care. A palliative care consult has been ordered. SW to continue to follow.
--- NOTE | 2019-07-08 11:09 | NUR ---
Pt in bed upon entry, stated tremaine he wanted to get out of bed and lay on the floor, one leg was dangling off side of bed, has C/O pain in neck and lower back, medications given for relief, shift assessments complete, left Pt call light in rech, bed in lowest position, bed alarm on.
--- NOTE | 2019-07-08 11:17 | NUR ---
Dinorah, at [facility], reports that they are able to accept the patient for a skilled stay. SW to inform the patient and his family and will continue to follow.
[2019-07-08 12:25] VITALS: BP 136/57; PULSE 86; TEMP 98.5
--- NOTE | 2019-07-08 12:41 | NUR ---
Palliative care nurse met with pt, his , Marcie, and granddaughter Rosa. Pt is ihaving some flight of ideas and required redirection but was able to share what his thoughts were with me and his family members. Initially he refused to share feelings, saying that was too personal, but then he opened up with some help from Rosa to help him stay focused. We did talk about continuing treatments and therapy but then spoke of focusing more on comfort and enjoying his time with family and projects. Pt states that he will think about options and talk with family. He reports he has thought about hospice and thinks that being comfortable sounds pretty good. I will toucch base with them later today.
--- NOTE | 2019-07-08 14:43 | NUR ---
Palliative Care Nurse, Alecia, met with the patient and his family. The patient would still like to think about his goals of care. SW contacted and faxed updates to [facility] and [facility]. SW to continue to follow.
[2019-07-08 16:20] VITALS: BP 157/74; PULSE 91; TEMP 97.4
--- NOTE | 2019-07-08 18:40 | NUR ---
Pt rested in the room today, doing better than this morning, has pain in both his neck and lower back, has C/O more pain in his neck this evening, Vs have remained stable.
[2019-07-08 19:10] VITALS: BP 151/85; PULSE 95; TEMP 98.3
--- NOTE | 2019-07-08 20:15 | NUR ---
Shift assessment complete. Pt resting in bed, awake, a&o, cooperative c cares. Pt reports continued neck/back pain, PRN pain medical van driver per pt req. Pt denies other c/o. PICC noted to R upper arm, patent c good blood return. External catheter in place to DD s complication. Pt denies further needs. Call light in reach, bed alarm on. Will continue to monitor.
[2019-07-08 23:33] VITALS: BP 155/67; PULSE 96
[2019-07-09 03:34] VITALS: BP 158/86; PULSE 98; TEMP 98.6
[2019-07-09 06:02] LABS: HEMOGLOBIN 10.9 g/dl (13.5-18.0); MEAN CELL VOLUME 97 fl (80.0-100.0); MEAN CORPUSCULAR HEMOGLOBIN 33 pg (27.0-31.0); MEAN CORPUSCULAR HGB CONC 34 g/dl (33.0-37.0); MEAN PLATELET VOLUME 9.6 fl (7.4-10.4); PLATELET COUNT 231 K/mm3 (130-400); RED BLOOD COUNT 3.31 M/mm3 (4.20-5.60); REDCELL DISTRIBUTION WIDTH-CV 12.3 % (11.5-14.5)
[2019-07-09 06:18] LABS: CALCIUM 8.7 mg/dL (8.4-10.2); CREATININE, serum 1.07 (0.66-1.25); POTASSIUM 4.1 mmol/L (3.4-5.0)
[2019-07-09 06:25] LABS: HEMATOCRIT 32.2 % (42.0-52.0)
[2019-07-09 08:48] VITALS: BP 152/76; PULSE 88; TEMP 98.4
[2019-07-09 09:39] LABS: BAND 11 % (0-10); BASOPHIL 1 % (0-2); EOSINOPHIL 4 % (0-4); LYMPHOCYTE 24 % (20.0-51.0); METAMYELOCYTE 3 % (0-0); NEUTROPHILS 46 % (42.0-75.2); PLATELET ESTIMATE NORMAL (NORMAL)
--- NOTE | 2019-07-09 10:00 | NUR ---
Patient up working with Physical Thearpy. Patient able to ambulate with walker. Patient requesting a shower this AM. Attempted to get patient to the shower. Ambulated to bathroom but upon getting to shower and starting with bathing; neck pain became too extreme to continue with shower. Assisted to bed with 2 assist and walker. Patient dried off; Lidocaine patches applied as per orders. Patient assisted to be and is resting comfortably. Patient call light in place. No other needs at this time
[2019-07-09 12:28] VITALS: BP 151/74; PULSE 86; TEMP 98.3
--- NOTE | 2019-07-09 14:17 | NUR ---
SB met with the patient, patient's (Marcie), and daughter (Ruby) to discuss his goals of care and then SNF for IV antibiotics vs hospice. The patient reports that he still has questions about the [facility] and is deciding on whether he wants to pursue with it or not. He states that he would like to talk to the doctor some more about the OLIVIA, before making a decision on discharge plan. SB notified the patient's PA, Merissa, of this. SB has contacted and faxed updates to [facility] and [facility]. SB to continue to follow.
--- NOTE | 2019-07-09 15:09 | NUR ---
The patient's MELVIN-Vignesh, Merissa, met with the patient and the patient's family to discuss the OLIVIA. The patient is wanting to move forward with the OLIVIA now. SB updated Dinorah at [facility]. SW to continue to follow.
[2019-07-09 17:28] VITALS: BP 139/68; PULSE 93; TEMP 98.6
--- NOTE | 2019-07-09 18:15 | NUR ---
Patient has been in good spirits throughout the day. Daughter and in to visit. Patient has been ambulatory with walker; wanting to be more independent by asking to push self up to try and be more independent. Patient continue to have siginificant neck pain/discomfort. Taking Narco for pain/discomfort. Patient has no needs at this time
--- NOTE | 2019-07-09 20:00 | NUR ---
Assessment complete. Pt laying in bed. Alert and oriented. Medication administered as ordered. On tele monitor, leads checked. PICC to TYLER intact, flushed. C/O chronic neck/upper back pain, rate 3/10 at rest, rate 6/10 with movement. Lidocaine patch inplace and removed at bedtime. PRn Fowler given as requested by pt. Fall and contact precautions in place. Urinal at bedside. Pt able to make needs known. Needs met at this time. Has CPAP HS. Call light within reach.
[2019-07-09 20:03] VITALS: BP 138/66; PULSE 101; TEMP 98.1
[2019-07-09 23:33] VITALS: BP 149/67; PULSE 95; TEMP 97.6
[2019-07-10 04:12] VITALS: BP 155/74; PULSE 80
--- NOTE | 2019-07-10 06:07 | NUR ---
C/O neck/back pain, rate 6/10. PRN Story given as requested by pt. No other complaints made during the night. CPAP on while sleeping. Fall precautions kept in place. Call light within reach.
--- NOTE | 2019-07-10 07:07 | NUR ---
Report given to ANATOLIY Abrams.
[2019-07-10 08:00] VITALS: BP 159/69; PULSE 90; TEMP 98.2
--- NOTE | 2019-07-10 08:56 | NUR ---
Pt doing well. Assessment completed. A/o with VSS. Patient ambualtory to bathroom, had small BM. x1 assist with walker and gaitbelt. Denies pain. PICC to [facility]GOS[facility]I. No concerns at this time. Call light within reach, will continue to monitor
--- NOTE | 2019-07-10 11:56 | NUR ---
Pt doing well. Resting in bed. PCP came to visit him. Denies pain at this time. Call light within reach, will continue to monitor
[2019-07-10 12:00] VITALS: BP 170/79; PULSE 95; TEMP 98.2
--- NOTE | 2019-07-10 14:21 | NUR ---
Pt in bed eating lunch. Denies pain or needs at this time. Call light within reach, will continue to monitor
--- NOTE | 2019-07-10 14:27 | NUR ---
Pt only ate 2 bites of his lunch. Stated he was not hungry. Offered alternative food but pt refused.
[2019-07-10 15:59] VITALS: PULSE 96; TEMP 98.9
[2019-07-10 20:00] VITALS: BP 146/71; PULSE 96; TEMP 98.5
--- NOTE | 2019-07-10 20:09 | NUR ---
Lying in bed with eyes open. Has chronic pain in back and neck. Denies any needs. Grandkids in room visiting with patient.
[2019-07-10 23:13] VITALS: BP 150/76; PULSE 86; TEMP 98.3
--- NOTE | 2019-07-10 23:49 | NUR ---
Lying supine with eyes closed. Respirations even and unlabored, using CPAP machine. No signs or symptoms of discomfort noted.
--- NOTE | 2019-07-11 02:23 | NUR ---
Lying in supine position with eyes closed. Respirations even and unlabored, using CPAP while sleeping. Opens eyes when name called out. Denies complaints, needs, or concerns at this time.
[2019-07-11 03:44] VITALS: BP 111/46; PULSE 87; TEMP 98.3
--- NOTE | 2019-07-11 05:55 | NUR ---
Lying in supine position with eyes closed. Respirations even and unlabored, continues to use CPAP. No signs or symptoms of discomfort noted.
[2019-07-11 06:01] LABS: BASO # 0.1 (0.0-0.2); BASO % 0.8 % (0.0-2.0); EOS # 0.2 (0.0-0.7); EOS % 2.1 % (0-4.0); GRAN # 5.7 (1.4-6.5); GRAN % 61.9 % (42.2-75.2); HEMOGLOBIN 11.5 g/dl (13.5-18.0); LYMPH # 2.2 (1.2-3.4); LYMPH % 23.9 % (20.0-51.0); MEAN CELL VOLUME 96 fl (80.0-100.0); MEAN CORPUSCULAR HEMOGLOBIN 32 pg (27.0-31.0); MEAN CORPUSCULAR HGB CONC 33 g/dl (33.0-37.0); MEAN PLATELET VOLUME 9.5 fl (7.4-10.4); MONO # 0.9 (0.1-0.6); MONO % 9.8 % (1.7-9.3); PLATELET COUNT 278 K/mm3 (130-400); RED BLOOD COUNT 3.57 M/mm3 (4.20-5.60); REDCELL DISTRIBUTION WIDTH-CV 12.2 % (11.5-14.5)
[2019-07-11 06:07] LABS: HEMATOCRIT 34.4 % (42.0-52.0)
[2019-07-11 06:12] LABS: CALCIUM 9.6 mg/dL (8.4-10.2); CREATININE, serum 1.23 (0.66-1.25); POTASSIUM 3.8 mmol/L (3.4-5.0)
[2019-07-11 07:03] VITALS: BP 145/71; PULSE 91; TEMP 97.8
--- NOTE | 2019-07-11 09:07 | NUR ---
Pt to [facility] with [facility] medical transcription radiology. Consent signed. Anesthesia aware.
--- NOTE | 2019-07-11 10:25 | NUR ---
SW contacted and faxed updates to Laz at [facility].
--- NOTE | 2019-07-11 10:41 | NUR ---
Pt returned to room 315 from OL[facility]. He is awake and A/Ox4. He denies pain or discomfort. He denies pain at this time. Pt refuses lidoderm patches at this time, stating they do not work for him. PICC line to right upper arm is free of complications. Pt remains on 2L O2 per NC, resp. are even and unlabored. Pt took all AM medications without complications. Pt is up with a stand by assist. at bedside, denies any other needs. Will monitor.
[2019-07-11 11:44] VITALS: BP 120/60; PULSE 84; TEMP 98.1
--- NOTE | 2019-07-11 13:11 | NUR ---
Vancomycin Follow-up Pharmacy Note Current regimen: VANCOMYCIN 1 G Q12H Vancomycin trough: 22.2 Adjustments: WORSENING RENAL FUNCTION. REDUCE FREQUENCY. VANCO 1.5 G Q24H. TROUGH 12/ @ 0700
--- NOTE | 2019-07-11 17:42 | NUR ---
Pt has had an uneventful day. has remained at bedside. Pt continues to deny needs.
[2019-07-11 17:56] VITALS: BP 151/68; PULSE 94; TEMP 98.7
[2019-07-11 19:58] VITALS: BP 139/81; PULSE 96; TEMP 98.1
--- NOTE | 2019-07-11 20:30 | NUR ---
Initial shift assessment done- states having some pain to neck/back 12/20-would like a [place] before bed tonight- alert/oriented/pleasant, tele on, Up with one standby assist- steady- wants to get up by himself but talked with pt and understands for safety to please call and we will assist up to bathroom- pt understands
[2019-07-11 23:31] VITALS: BP 105/58; PULSE 89; TEMP 98.1
[2019-07-12 03:39] VITALS: BP 105/57; PULSE 84; TEMP 97.5
--- NOTE | 2019-07-12 06:22 | NUR ---
Quiet night- requesting Mabel this morning- states back spasms are 10--will give as ordered
[2019-07-12 08:02] VITALS: BP 122/69; PULSE 84; TEMP 97.3
--- NOTE | 2019-07-12 08:14 | NUR ---
PATIENT ASSESSMENT COMPLETED. HE IS ASSISTED UP TO THE CHAIR FOR BREAKFAST STEADY GAIT TOLERATES WELL. HE DENIES PAIN AT THIS TIME. PAIN PILL HAS HELPED. HE DECLINES TO PUT ON THE LIDOCAINE PATCHES RIGHT NOW DOESNT FEEL THAT IT HELPS.
[2019-07-12 11:25] VITALS: BP 108/57; PULSE 82; TEMP 97.5
[2019-07-12 15:40] VITALS: BP 130/64; PULSE 86; TEMP 98.3
[2019-07-12 19:10] VITALS: BP 123/74; TEMP 97.4
--- NOTE | 2019-07-12 20:30 | NUR ---
Initial shift assessment done- states having a good day- overall feeling so much better, states having some back pain 11/20-would like a [place] before bed tonight- Up to bathroom with assist- steady on feet, voiding well- tele on, IV fluids of NS at 75cc/hr
[2019-07-12 23:38] VITALS: BP 149/72; PULSE 84; TEMP 98.1
[2019-07-13 03:57] VITALS: BP 124/69; PULSE 80; TEMP 97.1
--- NOTE | 2019-07-13 05:45 | NUR ---
Quiet night-- has been sleeping all night- no requests, VSS, IV fluids continue at 75cc/hr-
[2019-07-13 06:42] LABS: BASO # 0.1 (0.0-0.2); BASO % 1.4 % (0.0-2.0); EOS # 0.2 (0.0-0.7); EOS % 3.1 % (0-4.0); GRAN # 3.8 (1.4-6.5); GRAN % 52.8 % (42.2-75.2); HEMOGLOBIN 11.3 g/dl (13.5-18.0); LYMPH # 2.2 (1.2-3.4); LYMPH % 30.3 % (20.0-51.0); MEAN CELL VOLUME 97 fl (80.0-100.0); MEAN CORPUSCULAR HEMOGLOBIN 33 pg (27.0-31.0); MEAN CORPUSCULAR HGB CONC 34 g/dl (33.0-37.0); MEAN PLATELET VOLUME 9.4 fl (7.4-10.4); MONO # 0.8 (0.1-0.6); MONO % 11.3 % (1.7-9.3); PLATELET COUNT 321 K/mm3 (130-400); RED BLOOD COUNT 3.44 M/mm3 (4.20-5.60); REDCELL DISTRIBUTION WIDTH-CV 12.4 % (11.5-14.5)
[2019-07-13 06:54] LABS: HEMATOCRIT 33.5 % (42.0-52.0)
[2019-07-13 07:10] LABS: CALCIUM 9.4 mg/dL (8.4-10.2); CREATININE, serum 1.51 (0.66-1.25); POTASSIUM 3.8 mmol/L (3.4-5.0)
[2019-07-13 07:17] VITALS: BP 165/74; PULSE 94; TEMP 97.5
--- NOTE | 2019-07-13 10:15 | NUR ---
Pt assessment completed and charted. Pt sitting in bed, finishing breakfast. Pt A&O. Denies SOB, on room air at this time, satting well. Denies dizziness, chest pain, N/V/D, numbness or tingling. Pt has TYLER PICC w/ IVF fluids running w/o complications. Pulses strong bilaterally. Pt expresses no further needs at this time. Morning medications administered per oct.
[2019-07-13 12:08] VITALS: BP 160/66; PULSE 97; TEMP 98.3
--- NOTE | 2019-07-13 13:15 | NUR ---
Pt assisted to recliner w/ walker and 1 assist, tolerated well, steady gait. States he has some chronic back pain. Requesting pain pill for next time he moves arounds.
--- NOTE | 2019-07-13 14:43 | NUR ---
nursing home social worker faxed medical updates including facesheet, medications, progress notes and nursing notes to [facility] ([phone]).
[2019-07-13 15:41] VITALS: BP 142/64; PULSE 95; TEMP 97.6
--- NOTE | 2019-07-13 16:00 | NUR ---
Pt requesting norco for back pain and then one before bed. Pt received 1 tab per oct. Pt in bed and doing well. vss.
[2019-07-13 19:33] VITALS: BP 155/65; PULSE 94; TEMP 97.1
--- NOTE | 2019-07-13 22:32 | NUR ---
Shift assessment complete. Pt resting in bed, awake, a&o, cooperative c cares. Pt reports continued chronic pain to neck et back, will provide PRN c HS meds per pt req. Pt denies any other c/o at this time. PICC noted to R upper arm, patent c good blood return from both ports. O2 per NC. Tele in place. Pt denies further needs at this time. Call light in reach, bed alarm on. Will continue to monitor.
[2019-07-14] VITALS: BP 118/66; PULSE 83; TEMP 98.1
[2019-07-14 04:32] VITALS: BP 162/67; PULSE 88; TEMP 98.2
[2019-07-14 06:05] LABS: BASO # 0.1 (0.0-0.2); EOS # 0.2 (0.0-0.7); EOS % 2.8 % (0-4.0); GRAN # 4.8 (1.4-6.5); GRAN % 60.5 % (42.2-75.2); HEMOGLOBIN 10.9 g/dl (13.5-18.0); LYMPH # 1.8 (1.2-3.4); LYMPH % 22.5 % (20.0-51.0); MEAN CELL VOLUME 98 fl (80.0-100.0); MEAN CORPUSCULAR HEMOGLOBIN 32 pg (27.0-31.0); MEAN CORPUSCULAR HGB CONC 33 g/dl (33.0-37.0); MEAN PLATELET VOLUME 9.6 fl (7.4-10.4); MONO % 12.3 % (1.7-9.3); PLATELET COUNT 288 K/mm3 (130-400); RED BLOOD COUNT 3.43 M/mm3 (4.20-5.60); REDCELL DISTRIBUTION WIDTH-CV 12.1 % (11.5-14.5)
[2019-07-14 06:09] LABS: HEMATOCRIT 33.5 % (42.0-52.0)
[2019-07-14 06:11] LABS: CALCIUM 9.5 mg/dL (8.4-10.2); CREATININE, serum 1.46 (0.66-1.25); POTASSIUM 3.8 mmol/L (3.4-5.0)
[2019-07-14 07:50] VITALS: BP 108/54; PULSE 84; TEMP 97.4
--- NOTE | 2019-07-14 08:10 | NUR ---
Pt is awake and A/Ox4, resting in bed. He gets up to the restroom with a SBA, steady gait. He states his chronic pain level is a 5/10, given PRN pain medication by third shift lieutenant at approx. 0500. PICC line to right upper arm is free of complications. Pt denies any other needs, repositioned back in bed.
--- NOTE | 2019-07-14 09:20 | NUR ---
PICC intact right upper arm. With sterile technique right upper arm PICC dressing change done with insertion site cleansed with ChloraPrep 1, chlorhexidine impregnated disc applied, skin prep, StatLock, and Tegaderm applied. No signs or symptoms of IV complications noted. No concerns voiced.
[2019-07-14 11:18] VITALS: BP 156/66; PULSE 94; TEMP 97.1
--- NOTE | 2019-07-14 12:08 | NUR ---
Pt is sleeping soundly in bed. Call light is within reach.
[2019-07-14] MEDS ORDERED: VANCO 1.51.5 GM/250 IV (13:26)
[2019-07-14] MEDS ORDERED: LIORESAL 1010 MG/TAB PO (13:29)
[2019-07-14] MEDS ORDERED: Lidocaine 4% Patch TP (13:30)
[2019-07-14] MEDS ORDERED: TENORMIN 5050 MG/TAB PO (13:32)
--- NOTE | 2019-07-14 13:49 | NUR ---
The patient is to discharge today, 07/14, to [facility] for a skilled stay. Transportation was scheduled for 1430, via [facility]. SB informed the patient, patient's RN, and the patient's granddaughter. They were all in agreeance to the time. SB also presented and explained the IM form to the patient. The patient verbalized understanding, signed, and he was provided a copy. No additional needs at this time.
--- NOTE | 2019-07-14 14:43 | NUR ---
Pt was discharged to [facility] at [facility]. Report called to nurseKaelyn. PICC line kept in place per order.
--- NOTE | 2019-07-14 15:08 | NUR ---
Talked with and granddaughter this afternoon. They feel he really "turned around" after the discussion including hospice care. At that time they were not sure he would get better but he has made significant progress and is going to [facility] for a rehab. Support provided
[2019-07-14] MEDS ORDERED: NORCO 325 MG-101 TAB PO (16:36)
== END 2019-07-14 15:10 | DRG 871 ==
LOC: COL.ER 15:03 → MEDICAL 16:37
PROVIDERS: Emergency Medicine; Family Medicine; Nurse Practitioner Family; Physician Assistant; Student in an Organized Health Care Education/Training Program; ADMIT Internal Medicine
PROC: 02HV33Z Insertion of Infusion Device into Superior Vena Cava, Percutaneous Approach (ICD-10-PCS; principal; 2019-07-07)
DX: A41.02 Sepsis due to Methicillin resistant Staphylococcus aureus (principal); I21.4 Non-ST elevation (NSTEMI) myocardial infarction; N17.9 Acute kidney failure, unspecified; N39.0 Urinary tract infection, site not specified; J98.11 Atelectasis; C61 Malignant neoplasm of prostate; R65.20 Severe sepsis without septic shock; I07.9 Rheumatic tricuspid valve disease, unspecified; N40.0 Benign prostatic hyperplasia without lower urinary tract symptoms; I49.5 Sick sinus syndrome; G47.33 Obstructive sleep apnea (adult) (pediatric); I48.91 Unspecified atrial fibrillation; I25.10 Atherosclerotic heart disease of native coronary artery without angina pectoris; E83.42 Hypomagnesemia; D69.6 Thrombocytopenia, unspecified; E87.6 Hypokalemia; M54.9 Dorsalgia, unspecified; R25.2 Cramp and spasm; R19.7 Diarrhea, unspecified; E78.5 Hyperlipidemia, unspecified; I10 Essential (primary) hypertension; I25.2 Old myocardial infarction; K21.9 Gastro-esophageal reflux disease without esophagitis; Z66 Do not resuscitate; Z95.0 Presence of cardiac pacemaker; Z95.5 Presence of coronary angioplasty implant and graft; Z95.1 Presence of aortocoronary bypass graft
CPT/HCPCS: 99223-AI; 99231-AI; 99232-AI; 99233-AI; 99239; A4216; A9284; C1751; J0456; J0692; J1170; J1644; J1650; J2060; J2270; J2405; J2704; J3370; J3475; J7030; J7050

== ENCOUNTER 2019-08-02 02:08 | Emergency (ER) | payer MEDICARE, BC ==
[~2019-08-02] VITALS: Ht 177.8 cm; Wt 75.9 kg
[~2019-08-02 02:08] MED LIST changes: +LIORESAL 1010 MG/TAB PO; +Lidocaine 4% Patch TP; +NORCO 325 MG-101 TAB PO; +VANCO 1.51.5 GM/250 IV; +VITAMIN D 1001000 IU PO; +WELLBUTRIN XL150 MG PO
[2019-08-02 02:17] VITALS: TEMP 97.9
[2019-08-02 02:38] LABS: HEMOGLOBIN 11.7 g/dl (13.5-18.0); MEAN CELL VOLUME 97 fl (80.0-100.0); MEAN CORPUSCULAR HEMOGLOBIN 33 pg (27.0-31.0); MEAN CORPUSCULAR HGB CONC 34 g/dl (33.0-37.0); MEAN PLATELET VOLUME 9.5 fl (7.4-10.4); PLATELET COUNT 168 K/mm3 (130-400); RED BLOOD COUNT 3.55 M/mm3 (4.20-5.60); REDCELL DISTRIBUTION WIDTH-CV 13.4 % (11.5-14.5)
[2019-08-02 02:39] LABS: HEMATOCRIT 34.4 % (42.0-52.0)
[2019-08-02 02:44] LABS: PROTHROMBIN TIME 11.2 SECONDS (9.7-12.8)
[2019-08-02 02:48] LABS: ALBUMIN 3.9 gm/dL (3.5-5.0); BILIRUBIN,TOTAL 0.3 mg/dL (0.0-1.0); CALCIUM 9.2 mg/dL (8.4-10.2); CREATININE, serum 1.25 (0.66-1.25); POTASSIUM 3.2 mmol/L (3.4-5.0); TOTAL PROTEIN 6.7 gm/dL (6.4-8.2)
[2019-08-02 02:59] LABS: TROPONIN-I 0.016 ng/mL (0.000-0.035)
[2019-08-02 03:25] LABS: BAND 3 % (0-10); BASOPHIL 2 % (0-2); EOSINOPHIL 4 % (0-4); LYMPHOCYTE 71 % (20.0-51.0); METAMYELOCYTE 1 % (0-0); NEUTROPHILS 7 % (42.0-75.2); PLATELET ESTIMATE NORMAL (NORMAL)
[2019-08-02] MEDS ORDERED: COREG 6.256.25 MG/TA PO (06:42)
[2019-08-02 07:00] VITALS: BP 156/78; PULSE 89
== END 2019-08-02 07:00 | disposition home or self-care (01) ==
LOC: COL.ER 02:08
PROVIDERS: Emergency Medicine
DX: I10 Essential (primary) hypertension (principal); E87.6 Hypokalemia; K21.9 Gastro-esophageal reflux disease without esophagitis; E78.5 Hyperlipidemia, unspecified; Z87.442 Personal history of urinary calculi; Z95.0 Presence of cardiac pacemaker; Z90.89 Acquired absence of other organs; Z87.430 Personal history of prostatic dysplasia

== ENCOUNTER 2019-08-07 08:00 | Outpatient (RCR) | payer MEDICARE, BC ==
[2019-07-25 08:27] VITALS: BP 169/73; PULSE 74; TEMP 97.6
--- NOTE | 2019-07-25 08:30 | NUR ---
patient has been [facility] a [facility] facility now to the express unit for IV antibiotic administration. With sterile technique right upper arm PICC dressing change done with insertion site cleansed with ChloraPrep 1, chlorhexidine impregnated disc applied, skin prep, StatLock, and Tegaderm applied. Gauze removed. No signs or symptoms of IV complications noted. No concerns voiced. Patient to continue with cares in the express unit.
[2019-07-25 10:24] VITALS: BP 149/54; PULSE 76; TEMP 97.3
--- NOTE | 2019-07-25 10:26 | NUR ---
ATB INFUSION COMPLETE. PICC LINE FLUSHED, CAPS CHANGED. PATIENT ABLE TO AMBULATE WITHOUT DIFFICULTY TO EXIT.
[2019-07-26 08:50] VITALS: BP 183/86; PULSE 74; TEMP 97.5
[2019-07-27 08:55] VITALS: BP 160/76; PULSE 70; TEMP 97.8
[2019-07-28 08:37] LABS: BASO # 0.1 (0.0-0.2); BASO % 2.3 % (0.0-2.0); EOS # 0.4 (0.0-0.7); EOS % 8.7 % (0-4.0); GRAN # 1.4 (1.4-6.5); GRAN % 32.3 % (42.2-75.2); HEMOGLOBIN 11.5 g/dl (13.5-18.0); LYMPH # 1.8 (1.2-3.4); LYMPH % 40.5 % (20.0-51.0); MEAN CELL VOLUME 97 fl (80.0-100.0); MEAN CORPUSCULAR HEMOGLOBIN 33 pg (27.0-31.0); MEAN CORPUSCULAR HGB CONC 34 g/dl (33.0-37.0); MEAN PLATELET VOLUME 9.1 fl (7.4-10.4); MONO # 0.7 (0.1-0.6); PLATELET COUNT 193 K/mm3 (130-400); RED BLOOD COUNT 3.52 M/mm3 (4.20-5.60); REDCELL DISTRIBUTION WIDTH-CV 13.3 % (11.5-14.5)
[2019-07-28 08:38] LABS: HEMATOCRIT 34.1 % (42.0-52.0)
[2019-07-28 08:55] LABS: ALANINE AMINOTRANSFERASE 19 U/L (21-72); ALBUMIN 3.7 gm/dL (3.5-5.0); ALKALINE PHOSPHATASE 96 U/L (50-136); ANION GAP 9 mmol/L (7-16); AST,SGOT 22 U/L (15-37); BILIRUBIN,TOTAL 0.4 mg/dL (0.0-1.0); BLOOD UREA NITROGEN 19 mg/dL (9-20); CARBON DIOXIDE 28 mmol/L (22-30); CHLORIDE 104 mmol/L (98-107); CREATININE, serum 1.63 (0.66-1.25); GLUCOSE 112 mg/dL (74-106); POTASSIUM 3.5 mmol/L (3.4-5.0); SODIUM 141 mmol/L (137-145); TOTAL PROTEIN 6.7 gm/dL (6.4-8.2)
[2019-07-28 08:56] LABS: C-REACTIVE PROTEIN < 0.5 mg/dL (0.0-0.9)
[2019-07-28 09:15] VITALS: BP 167/76; PULSE 72; TEMP 98.2
[2019-07-28 09:15] LABS: ERYTHROCYTE SEDIMENTATION RATE 21 mm/hr (0-30)
[2019-07-29 08:25] VITALS: BP 167/88; PULSE 78; TEMP 98
[2019-07-30 09:15] VITALS: BP 137/64; PULSE 69; TEMP 97.6
--- NOTE | 2019-07-31 11:30 | NUR ---
PICC intact right upper arm with sterile dressing change done with insertion site cleansed with chloraprep x 1, chlorhexidine impregnated disk applied, skin prep, stat lock, and tegaderm applied. no signs or symptoms of IV complications noted. no concerns voiced. will continue to monitor.
[2019-07-31 11:34] VITALS: BP 121/83; PULSE 73; TEMP 97.9
[2019-08-01 08:28] VITALS: BP 150/62; PULSE 73; TEMP 97.9
[2019-08-02 08:15] VITALS: BP 165/91; PULSE 85; TEMP 98.5
[2019-08-03 08:23] VITALS: BP 152/78; PULSE 86; TEMP 97.4
[2019-08-04 08:27] VITALS: BP 149/55; PULSE 75; TEMP 98.1
[2019-08-04 08:31] LABS: HEMOGLOBIN 11.5 g/dl (13.5-18.0); MEAN CELL VOLUME 98 fl (80.0-100.0); MEAN CORPUSCULAR HEMOGLOBIN 33 pg (27.0-31.0); MEAN CORPUSCULAR HGB CONC 33 g/dl (33.0-37.0); MEAN PLATELET VOLUME 9.4 fl (7.4-10.4); PLATELET COUNT 170 K/mm3 (130-400); RED BLOOD COUNT 3.52 M/mm3 (4.20-5.60); REDCELL DISTRIBUTION WIDTH-CV 13.4 % (11.5-14.5)
[2019-08-04 08:34] LABS: HEMATOCRIT 34.4 % (42.0-52.0)
[2019-08-04 08:42] LABS: ALANINE AMINOTRANSFERASE 12 U/L (21-72); ALBUMIN 3.8 gm/dL (3.5-5.0); ALKALINE PHOSPHATASE 92 U/L (50-136); ANION GAP 10 mmol/L (7-16); AST,SGOT 34 U/L (15-37); BILIRUBIN,TOTAL 0.3 mg/dL (0.0-1.0); BLOOD UREA NITROGEN 20 mg/dL (9-20); CALCIUM 9.6 mg/dL (8.4-10.2); CARBON DIOXIDE 26 mmol/L (22-30); CHLORIDE 107 mmol/L (98-107); CREATININE, serum 1.32 (0.66-1.25); GLUCOSE 137 mg/dL (74-106); POTASSIUM 3.4 mmol/L (3.4-5.0); SODIUM 142 mmol/L (137-145); TOTAL PROTEIN 6.6 gm/dL (6.4-8.2)
[2019-08-04 08:52] LABS: ERYTHROCYTE SEDIMENTATION RATE 18 mm/hr (0-30)
[2019-08-04 08:54] LABS: C-REACTIVE PROTEIN < 0.5 mg/dL (0.0-0.9)
[2019-08-04 09:09] LABS: BAND 6 % (0-10); EOSINOPHIL 9 % (0-4); LYMPHOCYTE 63 % (20.0-51.0); NEUTROPHILS 11 % (42.0-75.2)
[2019-08-04 09:10] LABS: PLATELET ESTIMATE NORMAL (NORMAL)
[2019-08-05 08:38] VITALS: BP 184/73; PULSE 68; TEMP 97
[2019-08-06 08:00] VITALS: PULSE 71; TEMP 97.8
[2019-08-06 08:04] VITALS: BP 136/98
[~2019-08-07] VITALS: Ht 177.8 cm; Wt 75.9 kg
[~2019-08-07 08:00] MED LIST changes: +COREG 6.256.25 MG/TA PO
[2019-08-07 08:15] VITALS: BP 175/81; PULSE 96; TEMP 100.5
[2019-08-07 08:54] VITALS: BP 143/63; PULSE 95
[2019-08-07 10:22] VITALS: BP 161/72; PULSE 93; TEMP 101.1
--- NOTE | 2019-08-07 17:22 | NUR ---
Pt transferred to Er this am after infusion this am.Pt transferred to [facility] afterwards from ER.
== END 2019-08-07 17:23 | disposition home or self-care (01) ==
LOC: EUO 08:00
PROVIDERS: Nurse Practitioner
DX: C61 Malignant neoplasm of prostate (principal); I36.8 Other nonrheumatic tricuspid valve disorders; A41.9 Sepsis, unspecified organism
CPT/HCPCS: J3370; J7050

== ENCOUNTER 2019-08-07 11:17 | Emergency (ER) | payer MEDICARE, BC ==
[~2019-08-07] VITALS: Ht 177.8 cm; Wt 75.9 kg
[2019-08-07 11:19] VITALS: TEMP 100.4
[2019-08-07 11:43] LABS: COLLECTION METHOD CLEAN CATCH
[2019-08-07 11:49] LABS: HEMOGLOBIN 11.3 g/dl (13.5-18.0); MEAN CELL VOLUME 98 fl (80.0-100.0); MEAN CORPUSCULAR HEMOGLOBIN 33 pg (27.0-31.0); MEAN CORPUSCULAR HGB CONC 33 g/dl (33.0-37.0); MEAN PLATELET VOLUME 9.3 fl (7.4-10.4); PLATELET COUNT 170 K/mm3 (130-400); RED BLOOD COUNT 3.45 M/mm3 (4.20-5.60); REDCELL DISTRIBUTION WIDTH-CV 13.3 % (11.5-14.5)
[2019-08-07 11:51] LABS: HEMATOCRIT 33.8 % (42.0-52.0)
[2019-08-07 11:53] LABS: INR 1.1 (0.8-3.0); PROTHROMBIN TIME 12.4 SECONDS (9.7-12.8)
[2019-08-07 11:56] LABS: PARTIAL THROMBOPLASTIN TIME 26.4 SECONDS (26.0-37.0)
[2019-08-07 11:56] LABS: MUCOUS Present /lpf; PH 5 (5-8); SQUAMOUS EPITHELIAL None Seen /hpf; URINE APPEARANCE Clear; URINE BACTERIA None Seen /hpf; URINE BILIRUBIN Negative (NEGATIVE); URINE BLOOD 1+ (NEGATIVE); URINE COLOR Yellow; URINE GLUCOSE Negative (NEGATIVE); URINE KETONE Negative (NEGATIVE); URINE LEUKOCYTE ESTERASE Negative (NEGATIVE); URINE NITRATE Negative (NEGATIVE); URINE PROTEIN(semi-quant) Negative (NEGATIVE); URINE UROBILINOGEN Negative (NEGATIVE)
[2019-08-07 12:17] LABS: ALBUMIN 3.8 gm/dL (3.5-5.0); BILIRUBIN,TOTAL 0.3 mg/dL (0.0-1.0); C-REACTIVE PROTEIN 1.6 mg/dL (0.0-0.9); CALCIUM 9.4 mg/dL (8.4-10.2); CREATININE, serum 1.13 (0.66-1.25); POTASSIUM 3.5 mmol/L (3.4-5.0); TOTAL PROTEIN 6.5 gm/dL (6.4-8.2)
[2019-08-07 12:28] LABS: TROPONIN-I 0.031 ng/mL (0.000-0.035)
[2019-08-07 12:30] LABS: BAND 23 % (0-10); LYMPHOCYTE 30 % (20.0-51.0); NEUTROPHILS 31 % (42.0-75.2); PLATELET ESTIMATE NORMAL (NORMAL)
[2019-08-07 16:45] VITALS: BP 157/77; PULSE 74
== END 2019-08-07 16:37 | disposition short-term general hospital (02) ==
LOC: COL.ER 11:17
PROVIDERS: Emergency Medicine
DX: J18.9 Pneumonia, unspecified organism (principal); I07.9 Rheumatic tricuspid valve disease, unspecified; I25.10 Atherosclerotic heart disease of native coronary artery without angina pectoris; Z79.82 Long term (current) use of aspirin; Z85.46 Personal history of malignant neoplasm of prostate; Z95.1 Presence of aortocoronary bypass graft; Z95.5 Presence of coronary angioplasty implant and graft
CPT/HCPCS: A4216; J2185; J2997; J7030

== ENCOUNTER 2019-08-28 08:00 | Outpatient (RCR) | payer MEDICARE, BC ==
[2019-08-14 08:15] VITALS: BP 171/83; PULSE 75; TEMP 98.6
[2019-08-14 09:04] LABS: HEMOGLOBIN 11.2 g/dl (13.5-18.0); MEAN CELL VOLUME 98 fl (80.0-100.0); MEAN CORPUSCULAR HEMOGLOBIN 33 pg (27.0-31.0); MEAN CORPUSCULAR HGB CONC 33 g/dl (33.0-37.0); MEAN PLATELET VOLUME 9.3 fl (7.4-10.4); PLATELET COUNT 213 K/mm3 (130-400); RED BLOOD COUNT 3.45 M/mm3 (4.20-5.60); REDCELL DISTRIBUTION WIDTH-CV 12.9 % (11.5-14.5)
[2019-08-14 09:12] LABS: HEMATOCRIT 33.9 % (42.0-52.0)
[2019-08-14 09:14] LABS: ALBUMIN 3.5 gm/dL (3.5-5.0); BILIRUBIN,TOTAL 0.4 mg/dL (0.0-1.0); C-REACTIVE PROTEIN 1.5 mg/dL (0.0-0.9); CALCIUM 9.1 mg/dL (8.4-10.2); CREATININE, serum 1.17 (0.66-1.25); POTASSIUM 3.7 mmol/L (3.4-5.0); TOTAL PROTEIN 6.2 gm/dL (6.4-8.2)
[2019-08-14 09:29] LABS: ERYTHROCYTE SEDIMENTATION RATE 22 mm/hr (0-30)
[2019-08-14 09:46] LABS: BAND 9 % (0-10); BASOPHIL 1 % (0-2); EOSINOPHIL 8 % (0-4); LYMPHOCYTE 35 % (20.0-51.0); NEUTROPHILS 39 % (42.0-75.2); PLATELET ESTIMATE NORMAL (NORMAL)
[2019-08-14 09:47] VITALS: BP 171/83; PULSE 78; TEMP 98.6
[2019-08-15 08:48] VITALS: BP 125/57; PULSE 66; TEMP 98.1
[2019-08-16 08:00] VITALS: BP 106/57; PULSE 82; TEMP 97.5
--- NOTE | 2019-08-17 07:30 | NUR ---
Pt reports chest pain 12/20. Pt refuses to go to ER. 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 Pt states the chest pain has been going on for 3 days and is somewhat relieved by SL nitro.
[2019-08-17 08:10] VITALS: BP 142/68; PULSE 76; TEMP 98.1
[2019-08-18 08:17] VITALS: BP 114/60; PULSE 77; TEMP 98.1
[2019-08-18 08:22] LABS: BASO # 0.1 (0.0-0.2); BASO % 1.2 % (0.0-2.0); EOS # 0.3 (0.0-0.7); EOS % 6.5 % (0-4.0); GRAN # 2.1 (1.4-6.5); GRAN % 41.5 % (42.2-75.2); HEMOGLOBIN 11.1 g/dl (13.5-18.0); LYMPH # 1.9 (1.2-3.4); LYMPH % 36.3 % (20.0-51.0); MEAN CELL VOLUME 99 fl (80.0-100.0); MEAN CORPUSCULAR HEMOGLOBIN 32 pg (27.0-31.0); MEAN CORPUSCULAR HGB CONC 33 g/dl (33.0-37.0); MEAN PLATELET VOLUME 9.2 fl (7.4-10.4); MONO # 0.7 (0.1-0.6); MONO % 13.9 % (1.7-9.3); PLATELET COUNT 254 K/mm3 (130-400); RED BLOOD COUNT 3.45 M/mm3 (4.20-5.60)
[2019-08-18 08:26] LABS: HEMATOCRIT 34.2 % (42.0-52.0)
[2019-08-18 08:34] LABS: ALBUMIN 3.9 gm/dL (3.5-5.0); BILIRUBIN,TOTAL 0.5 mg/dL (0.0-1.0); C-REACTIVE PROTEIN 0.6 mg/dL (0.0-0.9); CALCIUM 10.3 mg/dL (8.4-10.2); CREATININE, serum 1.27 (0.66-1.25); POTASSIUM 3.7 mmol/L (3.4-5.0); TOTAL PROTEIN 6.8 gm/dL (6.4-8.2)
[2019-08-18 12:40] LABS: ERYTHROCYTE SEDIMENTATION RATE 18 mm/hr (0-30)
[2019-08-19 08:40] VITALS: BP 108/51; PULSE 76; TEMP 97.8
[2019-08-20 08:16] VITALS: BP 163/77; PULSE 83; TEMP 97.9
[2019-08-21 08:24] VITALS: BP 155/76; PULSE 77; TEMP 98.5
--- NOTE | 2019-08-22 08:15 | NUR ---
PICC intact right upper arm. With sterile technique right upper arm PICC dressing changes done with insertion site cleansed with ChloraPrep 1, chlorhexidine impregnated disc applied, skin prep, StatLock, and Tegaderm applied. No signs or symptoms of IV complications noted. No concerns voiced. Arm wrapped with Juan Antonio to protect catheter.
[2019-08-22 08:30] VITALS: BP 142/56; PULSE 77; TEMP 97.6
[2019-08-24 08:07] VITALS: BP 138/70; PULSE 83; TEMP 97.7
[2019-08-25 08:18] LABS: BASO # 0.1 (0.0-0.2); BASO % 1.1 % (0.0-2.0); EOS # 0.3 (0.0-0.7); GRAN # 2.7 (1.4-6.5); GRAN % 49.8 % (42.2-75.2); HEMOGLOBIN 10.4 g/dl (13.5-18.0); LYMPH # 1.8 (1.2-3.4); LYMPH % 32.8 % (20.0-51.0); MEAN CELL VOLUME 100 fl (80.0-100.0); MEAN CORPUSCULAR HEMOGLOBIN 33 pg (27.0-31.0); MEAN CORPUSCULAR HGB CONC 33 g/dl (33.0-37.0); MONO # 0.5 (0.1-0.6); MONO % 9.9 % (1.7-9.3); PLATELET COUNT 195 K/mm3 (130-400); REDCELL DISTRIBUTION WIDTH-CV 12.9 % (11.5-14.5)
[2019-08-25 08:22] LABS: HEMATOCRIT 31.9 % (42.0-52.0)
[2019-08-25 08:30] LABS: ALANINE AMINOTRANSFERASE 13 U/L (21-72); ALBUMIN 3.5 gm/dL (3.5-5.0); ALKALINE PHOSPHATASE 113 U/L (50-136); ANION GAP 9 mmol/L (7-16); AST,SGOT 29 U/L (15-37); BILIRUBIN,TOTAL 0.3 mg/dL (0.0-1.0); BLOOD UREA NITROGEN 18 mg/dL (9-20); CALCIUM 8.1 mg/dL (8.4-10.2); CARBON DIOXIDE 27 mmol/L (22-30); CHLORIDE 109 mmol/L (98-107); GLUCOSE 113 mg/dL (74-106); POTASSIUM 3.8 mmol/L (3.4-5.0); SODIUM 144 mmol/L (137-145); TOTAL PROTEIN 6.2 gm/dL (6.4-8.2)
[2019-08-25 08:31] LABS: C-REACTIVE PROTEIN < 0.5 mg/dL (0.0-0.9)
[2019-08-25 08:58] LABS: ERYTHROCYTE SEDIMENTATION RATE 21 mm/hr (0-30)
[2019-08-25 09:23] VITALS: BP 124/61; PULSE 70; TEMP 98.5
[2019-08-26 08:13] VITALS: BP 133/64; PULSE 77; TEMP 98.8
[2019-08-27 08:13] VITALS: BP 155/71; PULSE 73; TEMP 98.6
[~2019-08-28] VITALS: Ht 177.8 cm; Wt 76.2 kg
[~2019-08-28 08:00] MED LIST changes: +COREG 25MG25 MG/TAB PO; +IMDUR 60MG60 MG/TAB PO; +LEVAQUIN 5500 MG/TA1 PO; +NITROSTAT0.4 MG/TAB SL; +TYLENOL 500MG500 MG PO; +ZESTRIL 5MG5 MG PO
[2019-08-28 08:19] VITALS: BP 151/78; PULSE 76; TEMP 98.2
== END 2019-08-28 13:00 | disposition still patient (30) ==
LOC: EUO 08:00
PROVIDERS: Internal Medicine Infectious Disease; Nurse Practitioner
DX: Z45.2 Encounter for adjustment and management of vascular access device (principal)
CPT/HCPCS: C1751; J3370; J7050

== ENCOUNTER → 2019-09-11 | Outpatient (CLI) | payer MEDICARE, BC ==
[2019-09-11 12:35] LABS: BASO # 0.1 (0.0-0.2); BASO % 1.1 % (0.0-2.0); EOS # 0.2 (0.0-0.7); GRAN # 2.9 (1.4-6.5); GRAN % 51.2 % (42.2-75.2); HEMATOCRIT 36.7 % (42.0-52.0); HEMOGLOBIN 12.1 g/dl (13.5-18.0); LYMPH % 35.4 % (20.0-51.0); MEAN CELL VOLUME 99 fl (80.0-100.0); MEAN CORPUSCULAR HEMOGLOBIN 33 pg (27.0-31.0); MEAN CORPUSCULAR HGB CONC 33 g/dl (33.0-37.0); MEAN PLATELET VOLUME 8.7 fl (7.4-10.4); MONO # 0.5 (0.1-0.6); MONO % 8.8 % (1.7-9.3); PLATELET COUNT 219 K/mm3 (130-400); RED BLOOD COUNT 3.71 M/mm3 (4.20-5.60); REDCELL DISTRIBUTION WIDTH-CV 12.6 % (11.5-14.5)
[2019-09-11 12:54] LABS: BILIRUBIN,TOTAL 0.4 mg/dL (0.0-1.0); C-REACTIVE PROTEIN 0.6 mg/dL (0.0-0.9); CALCIUM 9.5 mg/dL (8.4-10.2); CREATININE, serum 1.22 (0.66-1.25); POTASSIUM 4.1 mmol/L (3.4-5.0); TOTAL PROTEIN 6.7 gm/dL (6.4-8.2)
[2019-09-11 13:30] LABS: ERYTHROCYTE SEDIMENTATION RATE 14 mm/hr (0-30)
== END ==
LOC: COL.LAB 12:19
PROVIDERS: Internal Medicine Infectious Disease
DX: A41.9 Sepsis, unspecified organism (principal)

== ENCOUNTER → 2019-10-01 | Outpatient (CLI) | payer MEDICARE, BC | LOC: COL.LAB 09:25 | DX: C61 Malignant neoplasm of prostate (principal) ==

== ENCOUNTER → 2019-10-15 | Outpatient (CLI) | payer MEDICARE, BC | LOC: COL.RAD 09:15 | DX: C61 Malignant neoplasm of prostate (principal) | CPT/HCPCS: A9503 ==

== ENCOUNTER → 2019-11-12 | Outpatient (CLI) | payer MEDICARE, BC ==
[2019-11-12 16:10] LABS: COLLECTION METHOD CLEAN CATCH
[2019-11-12 16:20] LABS: MUCOUS Present /lpf; PH 5 (5-8); SQUAMOUS EPITHELIAL None Seen /hpf; URINE APPEARANCE Cloudy; URINE BACTERIA None Seen /hpf; URINE BILIRUBIN Negative (NEGATIVE); URINE BLOOD 2+ (NEGATIVE); URINE COLOR Yellow; URINE GLUCOSE Negative (NEGATIVE); URINE KETONE Negative (NEGATIVE); URINE LEUKOCYTE ESTERASE 3+ (NEGATIVE); URINE NITRATE Negative (NEGATIVE); URINE PROTEIN(semi-quant) 2+ (NEGATIVE); URINE UROBILINOGEN Negative (NEGATIVE)
== END ==
LOC: COL.LAB 15:49
PROVIDERS: Urology
DX: R30.0 Dysuria (principal)

== ENCOUNTER 2019-12-03 18:50 | Inpatient (IN) | payer MEDICARE, BC ==
[~2019-12-03] VITALS: Ht 177.8 cm; Wt 74.1 kg
[~2019-12-03 18:50] MED LIST changes: +NEXIUM 20MG20 MG PO
[2019-12-03 19:42] LABS: COLLECTION METHOD CLEAN CATCH
[2019-12-03 19:46] LABS: BASO # 0.1 (0.0-0.2); BASO % 1.1 % (0.0-2.0); EOS # 0.1 (0.0-0.7); EOS % 1.9 % (0-4.0); GRAN # 4.4 (1.4-6.5); GRAN % 60.5 % (42.2-75.2); HEMOGLOBIN 12.2 g/dl (13.5-18.0); LYMPH # 1.8 (1.2-3.4); LYMPH % 24.9 % (20.0-51.0); MEAN CELL VOLUME 95 fl (80.0-100.0); MEAN CORPUSCULAR HEMOGLOBIN 32 pg (27.0-31.0); MEAN CORPUSCULAR HGB CONC 34 g/dl (33.0-37.0); MEAN PLATELET VOLUME 9.3 fl (7.4-10.4); MONO # 0.8 (0.1-0.6); MONO % 11.3 % (1.7-9.3); PLATELET COUNT 196 K/mm3 (130-400); RED BLOOD COUNT 3.82 M/mm3 (4.20-5.60); REDCELL DISTRIBUTION WIDTH-CV 12.7 % (11.5-14.5)
[2019-12-03 19:47] LABS: HEMATOCRIT 36.2 % (42.0-52.0)
[2019-12-03 19:52] LABS: MUCOUS Present /lpf; PH 6 (5-8); SQUAMOUS EPITHELIAL 0-2 /hpf; URINE APPEARANCE Cloudy; URINE BACTERIA Moderate /hpf; URINE BILIRUBIN Negative (NEGATIVE); URINE BLOOD 2+ (NEGATIVE); URINE COLOR Yellow; URINE GLUCOSE Negative (NEGATIVE); URINE KETONE Negative (NEGATIVE); URINE LEUKOCYTE ESTERASE 3+ (NEGATIVE); URINE NITRATE Positive (NEGATIVE); URINE PROTEIN(semi-quant) 2+ (NEGATIVE); URINE RBC >50 /hpf; URINE UROBILINOGEN Negative (NEGATIVE)
[2019-12-03 19:56] LABS: ALANINE AMINOTRANSFERASE 23 U/L (4-49); ALBUMIN 4.2 gm/dL (3.5-5.0); ALKALINE PHOSPHATASE 108 U/L (50-136); ANION GAP 7 mmol/L (7-16); AST,SGOT 37 U/L (15-37); BILIRUBIN,TOTAL 0.3 mg/dL (0.0-1.0); BLOOD UREA NITROGEN 25 mg/dL (9-20); CALCIUM 9.2 mg/dL (8.4-10.2); CARBON DIOXIDE 27 mmol/L (22-30); CHLORIDE 103 mmol/L (98-107); CREATININE, serum 1.09 (0.66-1.25); GLUCOSE 148 mg/dL (74-106); SODIUM 138 mmol/L (137-145); TOTAL PROTEIN 6.9 gm/dL (6.4-8.2)
[2019-12-03 20:07] LABS: TROPONIN-I < 0.012 ng/mL (0.000-0.035)
[2019-12-03] MEDS ORDERED: MOTRIN 200200 MG/TAB PO (22:24)
[2019-12-03] MEDS ORDERED: NORVASC 5MG5 MG/TAB PO (22:27)
[2019-12-03] MEDS ORDERED: COLCRYS0.6 MG PO (22:30)
[2019-12-03] MEDS ORDERED: INDOCIN SR 75MG75 MG PO (22:32)
--- NOTE | 2019-12-03 23:00 | NUR ---
Pt report received from Aria COPE in ED. Pt being transferred to medical unit with UTI and HTN. Awaiting Pt arrival at this time.
[2019-12-03 23:47] VITALS: BP 180/93; PULSE 85; TEMP 97.8
[2019-12-03 23:49] VITALS: BP 180/93; PULSE 87; TEMP 97.8
[2019-12-04 01:01] VITALS: BP 162/73
--- NOTE | 2019-12-04 02:11 | NUR ---
Pt is A&Ox4 and in a pleasant mood. Pt reports that he has periodic "chest pain" but has also recently had pericarditis and associates this pain with that disease process stating that he takes APAP ansd rests when this pain occurs and it goes away. Pt also has NitroStat SL tablets that he uses for chest pain that he associates with Angina but has not required NTG "for awhile". Pt is able to make wanyts/needs knows and upon transfer to the unit is noted to be ambulating without difficulty or SOA through the unit hallways near the nursing station. Pt is able to make wants/needs known and is familiar with the rooms and the call light system secondary to previous inpatient stays. Pt requested somethign to eat once this jingle writer performed meet/greet and a sandwich box meal was provided which Pt is noted to have eaten 100% of. Pt is coopertive with care and is able to assist this jingle writer with his medication reconciliation. No s/s of distress noted at this time. While reviewing VS it was noted by this jingle writer that Pt had elevated BP of 180/90 but when this jingle writer reassessed VS BP was noted to be decreased to about 162/74. Will continue to monitor at this time. Call light is at Pt side.
[2019-12-04 05:04] VITALS: BP 155/70; PULSE 85; TEMP 98.6
--- NOTE | 2019-12-04 05:28 | NUR ---
Pt has had a quiet peacefull night and has spent the shift since his admission resting in bed with no wants, needs, or complaints reported. Pt remains in stable condition with call light within reach. Pt remains A&Ox4 with no s/s of distress noted.
[2019-12-04 07:43] VITALS: BP 149/64; PULSE 87; TEMP 98.3
--- NOTE | 2019-12-04 10:25 | NUR ---
Pt awake and alert upon entry this morning, no C/O pain at this time, talkative. Shift assessements complete, left Pt call light in reach, bed in lowest position.
--- NOTE | 2019-12-04 11:32 | NUR ---
Outreach Professional met with patient to discuss discharge planning. Patient lives in [place] with his Marcie (ph#[phone]) and sees Dr. Bradshaw for primary care. Patient obtains medications from [facility] with no difficulties. Patient occasionally uses a cane and reports no other DME. Patient reports independence with ADLS and states he is still very mobile. Patient plans to return home upon discharge with his providing transportation. SW to continue to follow as needed.
[2019-12-04 11:48] VITALS: BP 138/69; PULSE 81; TEMP 99.3
--- NOTE | 2019-12-04 12:08 | NUR ---
First visit from the unemployment specialist. No needs right now.
[2019-12-04 16:01] VITALS: BP 143/73; PULSE 80; TEMP 98.3
--- NOTE | 2019-12-04 18:32 | NUR ---
Pt resting in the room today, no C/O pain throughout the day, VS have remained stable.
[2019-12-04 20:53] VITALS: BP 196/90; PULSE 85; TEMP 98.7
--- NOTE | 2019-12-04 22:30 | NUR ---
PT RESATING IN BED. NBO DISTRESS. HAS CONTINUOUS DULL ACHE ACROSS CHEST- PT RELATES PERICARDITITIS PAIN. DENIES NEED FOR PAIN MED. PT RELATES STILL HAVING ALITTLE DYSURIA FROM UTI BUT SOME IMPROVED. UP ABOUT IN ROOM. NO NEEDS AT THIS TIME.
[2019-12-05] VITALS (7 sets, daily range): BP systolic 143–182; BP diastolic 70–90; PULSE 71–84; TEMP 97.6–98.6
[2019-12-05 08:44] LABS: BASO # 0.1 (0.0-0.2); BASO % 0.9 % (0.0-2.0); EOS # 0.1 (0.0-0.7); EOS % 2.6 % (0-4.0); GRAN # 2.9 (1.4-6.5); GRAN % 54.1 % (42.2-75.2); HEMATOCRIT 34.9 % (42.0-52.0); HEMOGLOBIN 11.7 g/dl (13.5-18.0); LYMPH # 1.7 (1.2-3.4); LYMPH % 32.1 % (20.0-51.0); MEAN CELL VOLUME 96 fl (80.0-100.0); MEAN CORPUSCULAR HEMOGLOBIN 32 pg (27.0-31.0); MEAN CORPUSCULAR HGB CONC 34 g/dl (33.0-37.0); MEAN PLATELET VOLUME 9.4 fl (7.4-10.4); MONO # 0.6 (0.1-0.6); MONO % 10.1 % (1.7-9.3); PLATELET COUNT 190 K/mm3 (130-400); RED BLOOD COUNT 3.65 M/mm3 (4.20-5.60); REDCELL DISTRIBUTION WIDTH-CV 12.6 % (11.5-14.5)
[2019-12-05 08:51] LABS: CALCIUM 9.4 mg/dL (8.4-10.2); CREATININE, serum 0.97 (0.66-1.25); POTASSIUM 3.6 mmol/L (3.4-5.0)
--- NOTE | 2019-12-05 10:31 | NUR ---
[facility] attended clinical rounds with the team. Infectious Disease to be consulted. SW to continue to follow.
--- NOTE | 2019-12-05 10:35 | NUR ---
Assessment complete. Pt sitting up in bed after walking around on the floor. States he feels fine other than being bored. No pain or discomfort was reported. IV site CD&I. He is aware of his POC and does well independent in his room. Denies SOB, chest pain, and nausea and vomiting. No other needs were expressed at this time. Call light is reach.
--- NOTE | 2019-12-05 11:28 | NUR ---
Vancomycin Initial Dosing Pharmacy Note Ordering provider: Yudith Ortega MD Indication/duration: MRSA UTI Relevant comorbidities: h/o MRSA bacteremia LABS: SCr 0.97, CrCl~52, GFR 74 Recommendation: Will give Vancomycin 1.5 gm IV x1 loading dose, then Vancomycin 1 gm IV q12h. Pharmacy will continue to monitor and check a Vancomycin trough on 12/07/19. Loading dose: 1.5 grams Maintenance dose: 1 gram every 12 hours Trough goal: 10-15 ug/mL
--- NOTE | 2019-12-05 14:19 | NUR ---
Patient has been doing well thorughout the day. he is aware of his dx and the need for contact precautions as he has delt with this before. He was feeling nauseous after recieving the vancomycin IV, PRN zofran was administered. He is observed resting at this time. Call light is in reach.
--- NOTE | 2019-12-05 18:14 | NUR ---
Pt has had a good day. The PRN nausea medication took care of the nausea he was feeling. All medications were taken, no pain or discomfort all day. Administered PRN Tynlenol with the nausea medication earlier as he has chronic pain from his pericarditis. No other needs. Call light is in reach.
--- NOTE | 2019-12-05 20:30 | NUR ---
Initial shift assessment done- denies pain at this time- Tele on, Steady on feet- states having frequency and urgency w/urination - _ getting Vancomycin IV as ordered
[2019-12-06] VITALS (7 sets, daily range): BP systolic 133–156; BP diastolic 62–80; PULSE 69–79; TEMP 98.3–98.7
--- NOTE | 2019-12-06 00:46 | NUR ---
B/P has come down to 143/70-- going to give the apresoline but repeated the B/P and dose was not needed- pt states sleeping good tonight
--- NOTE | 2019-12-06 07:00 | NUR ---
Pt states did not sleep much- is having to get up 3times/hour to urinate- having some bladder pain- Tylenol given as ordered. B/P 140/70,s
[2019-12-06 07:43] LABS: BASO # 0.1 (0.0-0.2); BASO % 1.2 % (0.0-2.0); EOS # 0.1 (0.0-0.7); EOS % 2.3 % (0-4.0); GRAN # 3.1 (1.4-6.5); GRAN % 52.9 % (42.2-75.2); HEMOGLOBIN 11.9 g/dl (13.5-18.0); LYMPH # 1.8 (1.2-3.4); LYMPH % 31.9 % (20.0-51.0); MEAN CELL VOLUME 95 fl (80.0-100.0); MEAN CORPUSCULAR HEMOGLOBIN 32 pg (27.0-31.0); MEAN CORPUSCULAR HGB CONC 34 g/dl (33.0-37.0); MEAN PLATELET VOLUME 9.4 fl (7.4-10.4); MONO # 0.7 (0.1-0.6); MONO % 11.5 % (1.7-9.3); PLATELET COUNT 201 K/mm3 (130-400); RED BLOOD COUNT 3.67 M/mm3 (4.20-5.60); REDCELL DISTRIBUTION WIDTH-CV 12.5 % (11.5-14.5)
[2019-12-06 07:52] LABS: CALCIUM 9.5 mg/dL (8.4-10.2); CREATININE, serum 0.97 (0.66-1.25); POTASSIUM 3.8 mmol/L (3.4-5.0)
--- NOTE | 2019-12-06 09:22 | NUR ---
PT AOX4. STEADY INDEPENDENT AMBULATION. REPORTS DULL PAIN TO BLADDER REGION RADIATING TO BACK. REPORTS MILD NAUSEA AND URINARY FREQUENCY. TOLERATING PO WITH AVERAGE 50% INTAKE
--- NOTE | 2019-12-06 12:25 | NUR ---
PT REPORTED INCREASED NAUSEA. PRN ZOFRAN GIVEN. PT HAD 200MLS EMESIS 30 MINS LATER, FOOD WITH ONE BIG PILL. REPORTS STOMACH FEELING BETTER AFTER EMESIS. LAST BM 2 DAYS AGO PER PT AND 2-3 DAYS IS HIS NORMAL. REQUESTED PRUNE JUICE TO ASSIST WITH BM, JUICE PROVIDED. ABD NON-TENDER. PT REPORTS INCREASED NAUSEA AFTER SHOWER THIS AM. WILL CONT TO MONITOR
--- NOTE | 2019-12-06 19:50 | NUR ---
Patient sleeping in during during change of shift report from day shift nurseBailey. Patient did not awaken when room entered. Isolation precautions continues.
--- NOTE | 2019-12-07 01:00 | NUR ---
PATIENT SLEEPING WITH BREATHING NONLABORED AND EVEN, DOES NOT AWAKEN WHEN DOOR TO ROOM IS OPENED BY STAFF.
[2019-12-07 04:17] VITALS: BP 152/65; PULSE 75; TEMP 98.8
[2019-12-07 07:12] LABS: BASO # 0.1 (0.0-0.2); BASO % 1.3 % (0.0-2.0); EOS # 0.1 (0.0-0.7); EOS % 2.4 % (0-4.0); GRAN # 2.4 (1.4-6.5); GRAN % 44.4 % (42.2-75.2); LYMPH # 2.1 (1.2-3.4); LYMPH % 39.5 % (20.0-51.0); MEAN CELL VOLUME 94 fl (80.0-100.0); MEAN CORPUSCULAR HEMOGLOBIN 32 pg (27.0-31.0); MEAN CORPUSCULAR HGB CONC 34 g/dl (33.0-37.0); MEAN PLATELET VOLUME 9.4 fl (7.4-10.4); MONO # 0.7 (0.1-0.6); MONO % 12.2 % (1.7-9.3); PLATELET COUNT 203 K/mm3 (130-400); RED BLOOD COUNT 3.77 M/mm3 (4.20-5.60); REDCELL DISTRIBUTION WIDTH-CV 12.3 % (11.5-14.5)
[2019-12-07 07:14] LABS: HEMATOCRIT 35.6 % (42.0-52.0)
[2019-12-07 07:20] LABS: CALCIUM 9.7 mg/dL (8.4-10.2); CREATININE, serum 0.95 (0.66-1.25)
[2019-12-07 07:21] VITALS: BP 136/57; PULSE 71; TEMP 98.6
--- NOTE | 2019-12-07 07:29 | NUR ---
PATIENT SLEEPING DURING CHANGE OF SHIFT REPORT GIVEN TO DAY SHIFT NURSETORI. DOES NOT AWAKEN WHEN DOOR TO ROOM WAS OPENED BY NURSE.
--- NOTE | 2019-12-07 08:40 | NUR ---
Patient resting in bed. Minimal complaints. His only concerns is of constipation. miralx with hot water provided per request. He does report passing flatus. No other complaints of pain. He had minimal interest of appetite, due to his constipation. Int. Will monitor
[2019-12-07 11:42] VITALS: BP 129/64; PULSE 66; TEMP 98.6
[2019-12-07] MEDS ORDERED: DOXYCYCLINE 10100 MG PO (14:49)
[2019-12-07] MEDS ORDERED: SENEXON-S 50-81 EACH PO (15:06)
--- NOTE | 2019-12-07 16:10 | NUR ---
Patient ready for discharge. orders obtained. We reviewed all discharge instructions. medication list reviewed- including new scripts faxed to pharmacy & last dose given & medication safety. diet & activity reviewed as well as MRSA-patient denies questions or concerns. Patient ambulated out with all belongings.
== END 2019-12-07 16:41 | disposition home or self-care (01) | DRG 690 ==
LOC: COL.ER 18:50 → MEDICAL 21:23
PROVIDERS: Emergency Medicine; Family Medicine; Physician Assistant; ADMIT Student in an Organized Health Care Education/Training Program
DX: N39.0 Urinary tract infection, site not specified (principal); I31.9 Disease of pericardium, unspecified; I16.0 Hypertensive urgency; I10 Essential (primary) hypertension; I25.10 Atherosclerotic heart disease of native coronary artery without angina pectoris; R33.9 Retention of urine, unspecified; R35.0 Frequency of micturition; E78.5 Hyperlipidemia, unspecified; K59.00 Constipation, unspecified; N20.0 Calculus of kidney; G89.29 Other chronic pain; M10.9 Gout, unspecified; B95.62 Methicillin resistant Staphylococcus aureus infection as the cause of diseases classified elsewhere; M54.9 Dorsalgia, unspecified; K21.9 Gastro-esophageal reflux disease without esophagitis; I25.2 Old myocardial infarction; Z79.82 Long term (current) use of aspirin; Z95.5 Presence of coronary angioplasty implant and graft; Z95.1 Presence of aortocoronary bypass graft; Z85.46 Personal history of malignant neoplasm of prostate; Z95.2 Presence of prosthetic heart valve
CPT/HCPCS: OP; 99232-AI; 99239; A4216; G0378; J0360; J0696; J1650; J2405; J3370; J7030; J7050

== ENCOUNTER 2020-01-29 00:37 | Emergency (ER) | payer MEDICARE, BC ==
[~2020-01-29] VITALS: Ht 177.8 cm; Wt 75.9 kg
[~2020-01-29 00:37] MED LIST changes: -CALCIUM CARBON650 M2 PO
[2020-01-29 00:47] VITALS: BP 119/33; TEMP 97.8
[2020-01-29] MEDS ORDERED: CALCIUM CARBON650 M2 PO (01:00)
[2020-01-29 03:11] VITALS: PULSE 87
== END 2020-01-29 03:10 | disposition home or self-care (01) ==
LOC: COL.ER 00:37
DX: T83.098A Other mechanical complication of other urinary catheter, initial encounter (principal); I10 Essential (primary) hypertension; I25.10 Atherosclerotic heart disease of native coronary artery without angina pectoris; E78.5 Hyperlipidemia, unspecified; K21.9 Gastro-esophageal reflux disease without esophagitis; M10.9 Gout, unspecified; Z79.82 Long term (current) use of aspirin; Z95.1 Presence of aortocoronary bypass graft; Z85.46 Personal history of malignant neoplasm of prostate

== ENCOUNTER → 2020-01-29 | Outpatient (CLI) | payer MEDICARE, BC ==
[~2020-01-29] MED LIST changes: +CALCIUM CARBON650 M2 PO; +COLCRYS0.6 MG PO; +DOXYCYCLINE 10100 MG PO; +INDOCIN SR 75MG75 MG PO; +MOTRIN 200200 MG/TAB PO; +NORVASC 5MG5 MG/TAB PO; +SENEXON-S 50-81 EACH PO; +SEROQUEL 1100 MG/TAB PO
== END ==
LOC: BHSO 15:56
DX: F31.81 Bipolar II disorder (principal)
CPT/HCPCS: G0463

== ENCOUNTER 2020-02-05 06:30 | Day surgery (SDC) | payer MEDICARE, BC ==
[~2020-02-05] VITALS: Ht 177.8 cm; Wt 76.1 kg
[2020-02-05] VITALS (11 sets, daily range): BP systolic 105–172; BP diastolic 63–87; PULSE 74–86; TEMP 97.2–99.3
[~2020-02-05 06:30] MED LIST changes: +CALCIUM CARBON650 M2 PO
[2020-02-05] MEDS ORDERED: COREG 25MG25 MG/TAB PO (07:44)
[2020-02-05] MEDS ORDERED: ISOSORBIDE MON120 MG PO (07:46)
--- NOTE | 2020-02-05 10:45 | NUR ---
PATIENT ARRIVED TO ROOM 331 VIA CART FROM PACU. PATIENT IS DROWSY BUT A&O. POST-OP VSS. 3-WAY ROWE CATHETER WITH CBI INFUSING AT A MODERATE RATE. PRESENT AT THE BEDISIDE. PATIENT DENIES PAIN. NO NEEDS AT THIS TIME.
--- NOTE | 2020-02-05 12:30 | NUR ---
PATIENT TOLERATING FOOD & LIQUIDS WITHOUT ANY COMPLAINTS OF N/V. POST-OP VSS. WILL CONTINUE TO MONITOR.
--- NOTE | 2020-02-05 14:30 | NUR ---
POST-OP VITALS STABLE & COMPLETE. NO NEEDS AT THIS TIME.
--- NOTE | 2020-02-05 16:13 | NUR ---
SB met with the patient to complete initial intake. The patient lives in [facility] with his , Marcie. The patient uses a CPAP and receives supplies from [facility]. The patient's PCP is Dr. Bradshaw and patient receives medications from [facility] with no difficulties. The patient does not have advanced directives in the EMR but states they are complete and designate his , Marcie. The patient will return home at discharge and had no concerns about doing so. There are no additional needs at this time.
--- NOTE | 2020-02-05 19:00 | NUR ---
REPORT GIVEN TO ANATOLIY JETER.
--- NOTE | 2020-02-05 19:19 | NUR ---
PATIENT RESTING IN BED DURING CHANGE OF SHIFT REPORT RECEIVED FROM DAY SHIFT NURSEMIK. CBI PATENT, CATHETER DRAINING LIGHT RED, NO CLOTS OBSERVED IN TUBING AT THIS TIME. PATIENT WITH NO C/O, IVF INFUSING WITH NO PROBLEMS.
[2020-02-06 00:50] VITALS: BP 123/59; PULSE 89; TEMP 99.2
--- NOTE | 2020-02-06 02:31 | NUR ---
OBSERVED CBI TO ROWE CATHETER DRAINING CLEAR PINK TINGED URINE WITH OCCASIONAL RED SEDIMENT, NO CLOTS OBSERVED CURRENTLY. BREATHING OBSERVED NONLABORED AND EVEN, PATIENT SLEEPING BUT AWAKENS EASILY WHEN NAME CALLED. IVF INFUSING WITH NO PROBLEMS TO R HAND. DENIES ANY PAIN, RECTAL PRESSURE OR ANY NEEDS AT THIS TIME.
[2020-02-06 04:27] VITALS: BP 110/52; PULSE 91; TEMP 99.7
--- NOTE | 2020-02-06 07:07 | NUR ---
PATIENT SLEEPING IN BED DURING CHANGE OF SHIFT REPORT GIVEN TO DAY SHIFT NURSEPEPITO.
[2020-02-06 08:19] VITALS: BP 160/65; PULSE 106; TEMP 98.8
--- NOTE | 2020-02-06 08:30 | NUR ---
PATIENT IS SITTING UP IN BED WITH NO COMPLAINTS. ROWE TO DD WITH CLEAR PEACH COLORED URINE. CBI CLAMPED. PATIENT GIVEN EDUCATION REGARDING URINE AND DRINKING PLENTY OF WATER. PATIENT VERBALIZED UNDERSTANDING. WILL MONITOR
--- NOTE | 2020-02-06 12:00 | NUR ---
AT BEDSIDE. PATIENT DOING WELL. URINE IS CLEAR YELLOW WITH OCCATIONAL SEDIMENT NOTED. ORAL INTAKE IS GOOD. SEE DISCHARGE ORDERS FOR LATER TODAY.
[2020-02-06 12:24] VITALS: BP 136/53; PULSE 80; TEMP 98.6
--- NOTE | 2020-02-06 14:15 | NUR ---
PATIENT DISCHARGING HOME VIA WC TO PERSONAL VEHICLE WITH . GAVE DISCHARGE INSTRUCTIONS, CATH SUPPLIES, LEG BAG & F/U APT WITH UROLOGY. ANSWERED ALL QUESTIONS/CONCERNS. DC'D RIGHT HAND IV, COVERED SITE WITH GAUZE & COBAN. LEG BAG INPLACE FOR DISCHARGE. PATIENT DRESSED AND PERSONAL BELONGINGS SENT TO CAR WITH . PATIENT DISCHARGED.
== END 2020-02-06 14:15 | disposition home or self-care (01) ==
LOC: SDCO 06:30 → JCC 10:45 → SDCO 02-06 14:15
DX: C61 Malignant neoplasm of prostate (principal); C79.51 Secondary malignant neoplasm of bone; I25.2 Old myocardial infarction; I25.10 Atherosclerotic heart disease of native coronary artery without angina pectoris; I10 Essential (primary) hypertension; K21.9 Gastro-esophageal reflux disease without esophagitis; K58.9 Irritable bowel syndrome, unspecified; F31.9 Bipolar disorder, unspecified; M54.9 Dorsalgia, unspecified; M54.2 Cervicalgia; H91.93 Unspecified hearing loss, bilateral; G47.00 Insomnia, unspecified; G47.30 Sleep apnea, unspecified; Z85.828 Personal history of other malignant neoplasm of skin; Z95.0 Presence of cardiac pacemaker; Z79.899 Other long term (current) drug therapy; Z82.3 Family history of stroke; Z79.82 Long term (current) use of aspirin
CPT/HCPCS: OP; J0690; J2405; J2704; J3010; J3480; J7120

== ENCOUNTER 2020-05-01 06:19 | Emergency (ER) | payer MEDICARE, BC ==
[~2020-05-01] VITALS: Ht 177.8 cm; Wt 70.5 kg
[~2020-05-01 06:19] MED LIST changes: +ISOSORBIDE MON120 MG PO
[2020-05-01 06:25] VITALS: TEMP 97.9
[2020-05-01] MEDS ORDERED: VALIUM 2MG T2 MG/TAB PO ×2 (08:02→08:03)
[2020-05-01 09:55] VITALS: BP 125/75; PULSE 95
== END 2020-05-01 10:03 | disposition home or self-care (01) ==
LOC: COL.ER 06:19
DX: N32.89 Other specified disorders of bladder (principal); Z79.82 Long term (current) use of aspirin; Z85.46 Personal history of malignant neoplasm of prostate
CPT/HCPCS: J1170; J1790